=== PATIENT | female | born 1965 | race Hispanic/Latino ===

== ENCOUNTER 2016-10-23 08:46 | Emergency (ER) | payer OTHER ==
[2016-10-23 09:20] VITALS: BP 139/89; PULSE 86; RESP 16; TEMP 98; O2SAT 98; BMI 31.1
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
--- NOTE | 2016-10-23 14:31 | US ---
PROCEDURE: Left lower extremity venous US HISTORY: Leg pain and swelling. Evaluate for DVT. PHYSICIAN(S): Moody Leblanc MD. TECHNIQUE: Duplex sonography and color-flow Doppler with graded compression were used to evaluate the deep venous system of the left lower extremity. FINDINGS: The visualized deep venous system of the left lower extremity is sonographically normal and compressible. Normal wave forms and augmentation are seen. There is no sonographic evidence for deep venous thrombosis in the visualized segments of the left lower extremity. IMPRESSION: 1. No sonographic evidence for deep venous thrombosis in the visualized segments of the left lower extremity.
== END 2016-10-23 11:01 | disposition home or self-care (01) ==
LOC: ED 08:46
DX: M79.605 Pain in left leg (principal); I10 Essential (primary) hypertension; Z87.891 Personal history of nicotine dependence
CPT/HCPCS: 93971; 96372; 99283; J1885

== ENCOUNTER 2016-12-02 21:03 | Observation (INO) | payer OTHER ==
[2016-12-02 21:03] VITALS: BMI 26.6
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
[2016-12-02 22:59] LABS: ALB/GLOB RATIO 1.6 (1.1-1.8); ALBUMIN 3.9 g/dL (3.0-4.8); ALT/SGPT 28 U/L (7-56); AST/SGOT 16 U/L (15-39); BLOOD UREA NITROGEN 8 mg/dL (7-21); GFR AFRICAN-AMERICAN > 60; GFR NON-AFRICAN AMERICAN > 60
[2016-12-02 23:02] LABS: INR 1.06 (0.93-1.08); PARTIAL THROMBOPLASTIN TIME 23.8 Seconds (23.7-30.8); PROTHROMBIN TIME 11.5 Seconds (9.9-11.8)
[2016-12-02 23:05] LABS: HEMOGLOBIN 13.7 gm/dL (12.0-16.0); MEAN CELL VOLUME 82.2 fL (80.0-105.0); MEAN CORPUSCULAR HEMOGLOBIN 28.7 pg (25.0-35.0); MEAN CORPUSCULAR HGB CONC 34.9 g/dl (31.0-37.0); MEAN PLATELET VOLUME 9.1 fl (7.0-11.0); RBC 4.77 10^6/uL (3.5-6.1); RED CELL DISTRIBUTION WIDTH 13.2 % (11.5-14.5); WHITE BLOOD COUNT 5.1 10^3/ul (4.5-11.0)
[2016-12-02 23:14] LABS: TROPONIN I < 0.01 ng/mL
[2016-12-03] MEDS ORDERED: Insulin Regular 1 UNITS/0.01 ML ML SC STA (01:05)
[2016-12-03 06:23] VITALS: O2SAT 93
[2016-12-03] MEDS: Insulin Reg-LOW-Coverage SC SCH ×3 (08:00→18:00)
--- NOTE | 2016-12-03 08:22 | RAD ---
HISTORY: chest pain COMPARISON: 05/13/2015 FINDINGS: LUNGS: No active pulmonary disease. PLEURA: No significant pleural effusion identified, no pneumothorax apparent. CARDIOVASCULAR: Normal. OSSEOUS STRUCTURES: No significant abnormalities. VISUALIZED UPPER ABDOMEN: Normal. OTHER FINDINGS: None. IMPRESSION: No active disease.
[2016-12-03] MEDS ORDERED: Potassium Chloride 20 mEq ER Tab PO ONE (09:35)
[2016-12-03 09:37] LABS: HDL CHOLESTEROL 56 mg/dL (29-60)
[2016-12-03 09:48] LABS: LDL CHOLESTEROL 182 mg/dL (0-129)
[2016-12-03] MEDS ORDERED: Aminophylline 25 mg/ml Inj ONE (09:56)
--- NOTE | 2016-12-03 12:41 | CARD ---
APPROVED REPORT EXAM: Two-dimensional and M-mode echocardiogram with Doppler and color Doppler. INDICATION Chest Pain 2D DIMENSIONS Left Atrium (2D)3.6 (1.6-4.0cm)IVSd1.4 (0.7-1.1cm) LVDd4.3 (3.9-5.9cm)PWd1.2 (0.7-1.1cm) LVDs2.9 (2.5-4.0cm)FS (%) 31.9 % LVEF (%)60.4 (>50%) M-Mode DIMENSIONS Aortic Root3.00 (2.2-3.7cm)Aortic Cusp Exc.2.00 (1.5-2.0cm) Aortic Valve AoV Peak Pbsdnytf742.0cm/Nathaly Peak GR.6mmHg Mitral Valve MV E Bmqenugr832.0cm/sMV A Aodrinwe512.0cm/sE/A ratio0.9 TDI E/Lateral E'0.0E/Medial E'0.0 Tricuspid Valve TR Peak [id number]/sRAP [id number] Peak Gr.14mmHg [id number] LEFT VENTRICLE The left ventricle is normal size. There is mild concentric left ventricular hypertrophy. The left ventricular function is normal.EF-60-65% There is normal LV segmental wall motion. Transmitral Doppler flow pattern is Grade II-pseudonormal filling dynamics. No left ventricle thrombus noted on this study. There is no ventricular septal defect visualized. There is no left ventricular aneurysm. There is no mass noted in the left ventricle. RIGHT VENTRICLE The right ventricle is normal size. There is normal right ventricular wall thickness. The right ventricular systolic function is normal. ATRIA The left atrium size is normal. The right atrium size is normal. The interatrial septum is intact with no evidence for an atrial septal defect. AORTIC VALVE The aortic valve is thickened but opens well. There is trace aortic regurgitation. There is no aortic valvular stenosis. There is no aortic valvular vegetation. MITRAL VALVE The mitral valve is thickened but opens well. Mitral regurgitation is trace. There is no mitral valve stenosis. There is no evidence of mitral valve prolapse. TRICUSPID VALVE The tricuspid valve leaflets are thickened , but open well. There is trace tricuspid regurgitation.RVSP-24 mmof hg. There is no tricuspid valve stenosis. There is no tricuspid valve prolapse or vegetation. PULMONIC VALVE The pulmonary valve is normal in structure. There is trace pulmonic valvular regurgitation. There is no pulmonic valvular stenosis. GREAT VESSELS The aortic root is normal in size. The ascending aorta is normal in size. The pulmonary artery is normal. The IVC is normal in size and collapses >50% with inspiration. PERICARDIAL EFFUSION There is no pleural effusion. There is no pericardial effusion. <Conclusion> Normal chambeber Size. EF-60-65% Trace MR/TR/AR/PI RVSP-24 mmof hg. No vegetation or thrombus noted.
--- NOTE | 2016-12-03 15:24 | CP.PCM.HP ---
History of Present Illness - History of Present Illness History of Present Illness: 51 yo female adm thru ED with chest pain, troponin neg, had stress test today, result pending, No cp or sob at present Present on Admission - Present on Admission Any Indicators Present on Admission: No Past Patient History - Infectious Disease Hx of Infectious Diseases: None - Tetanus Immunizations Tetanus Immunization: Unknown - Past Medical History & Family History Past Medical History?: Yes - Past Social History Smoking Status: Former Smoker - CARDIAC Hx Heart Murmur: Yes (leaky valve) Hx Hypercholesterolemia: Yes Hx Hypertension: Yes - PULMONARY Hx Asthma: Yes Hx Pneumonia: Yes - NEUROLOGICAL Hx Seizures: Yes - HEENT Hx HEENT Problems: No - RENAL Hx Chronic Kidney Disease: No - ENDOCRINE/METABOLIC Hx Diabetes Mellitus Type 2: Yes - HEMATOLOGICAL/ONCOLOGICAL Hx Blood Disorders: No Hx Blood Transfusions: No Hx Blood Transfusion Reaction: No - INTEGUMENTARY Hx Eczema: Yes Hx Squamous Cell: Yes (Basal cell carcinoma) - MUSCULOSKELETAL/RHEUMATOLOGICAL Hx Arthritis: Yes Hx Back Pain: Yes Hx Falls: Yes - GASTROINTESTINAL HX Swallowing Problems: Yes - GENITOURINARY/GYNECOLOGICAL Hx Urinary Tract Infection: Yes - PSYCHIATRIC Hx Anxiety: Yes Hx Depression: Yes Hx Substance Use: No - SURGICAL HISTORY Hx Cholecystectomy: Yes Hx Hysterectomy: Yes - ANESTHESIA Hx Anesthesia: Yes Hx Anesthesia Reactions: No Hx Malignant Hyperthermia: No Meds Allergies/Adverse Reactions: Allergies Allergy/AdvReac Type Severity Reaction Status Date / Time Penicillins Allergy ANAPHYLAXIS Verified 05/28/16 13:02 Physical Exam - Head Exam Head Exam: ATRAUMATIC, NORMOCEPHALIC - Eye Exam Eye Exam: EOMI, PERRL - ENT Exam ENT Exam: Normal Exam - Neck Exam Neck exam: Positive for: Normal Inspection - Respiratory Exam Respiratory Exam: Accessory Muscle Use, NORMAL BREATHING PATTERN - Cardiovascular Exam Cardiovascular Exam: REGULAR RHYTHM - GI/Abdominal Exam GI & Abdominal Exam: Normal Bowel Sounds, Soft - Extremities Exam Extremities exam: Positive for: normal inspection - Neurological Exam Neurological exam: Alert, Oriented x3 - Skin Skin Exam: Normal Color, Warm Results - Vital Signs Recent Vital Signs: Last Vital Signs Temp 98 F 12/03/16 06:00 Pulse 83 12/03/16 14:00 Resp 21 12/03/16 06:00 BP 140/90 12/03/16 06:00 Pulse Ox 93 L 12/03/16 06:00 - Labs Result Diagrams: 12/02/16 22:38 12/02/16 22:38 Labs: Laboratory Results - last 24 hr 12/03/16 12/03/16 12/03/16 02:24 07:16 08:40 POC Glucose (mg/dL) 212 H 150 H Hemoglobin A1c Triglycerides 273 H Cholesterol 291 H LDL Cholesterol Direct 182 H HDL Cholesterol 56 TSH 3rd Generation 12/03/16 12/03/16 12/03/16 08:40 08:40 13:51 POC Glucose (mg/dL) 308 H Hemoglobin A1c 9.8 H Triglycerides Cholesterol LDL Cholesterol Direct HDL Cholesterol TSH 3rd Generation 1.80 Assessment & Plan (1) Chest pain Status: Acute (2) Type II diabetes mellitus Status: Chronic - Assessment and Plan (Free Text) Plan: await results stress test - Date & Time Date: 12/03/16 Time: 15:00
[2016-12-03 17:53] VITALS: BP 153/93; RESP 16; TEMP 97
[2016-12-03 18:41] VITALS: PULSE 81
--- NOTE | 2016-12-03 20:15 | CON ---
DATE: 12/03/2016 REASON FOR THE CONSULTATION: Followup cardiac evaluation, admitted with chest pain. BRIEF CLINICAL HISTORY: This is a 51-year-old female with past medical history significant for diabetes, hypertension, hyperlipidemia, admitted with complaint of chest pain. The patient said the chest pain is more than 6 weeks off and on, and dyspnea exertion off and on. It is getting worse so decided to come to ER to check it out. Denies any recent genuine character of the chest pain, denies any genuine intensity or duration of the chest pain. PAST MEDICAL HISTORY: Significant for diabetes, hypertension, hyperlipidemia, history of cardiac catheterization 12/16/2012, and nonobstructive coronary artery disease. Previous cardiac workup as follows; The patient had cardiac catheterization on 12/16/2012 that showed essentially normal left main, proximal normal LAD, proximal very tortuous. No flow obstructive stenosis in the mid LAD. Distal LAD is diffusely between 50-55%, but no non-flow obstructive stenosis noted. Circumflex large caliber versus essentially significant disease, very tortuous. Right coronary artery has also large caliber vessels essentially for significant disease, ejection fraction reported 55%, EDP was in the range of 12 dated 12/16/2013. The patient had a stress test twice 11/17/2012 and most recently on 05/15/2015 and she had normal myocardial perfusion study, ejection fraction at 72% on dated 05/15/2015. The patient had echocardiographic data at Dr. Hopkins's office that shows mild mitral regurgitation in 2014. SOCIAL HISTORY: Denies history of alcohol abuse. ALLERGIES: PENICILLIN GET ANAPHYLACTIC REACTION. CURRENT MEDICATIONS: The patient at home is taking ibuprofen, aspirin, metformin 1 g twice, and lisinopril 20 mg daily. REVIEW OF SYSTEMS: As per HPI. A 14-point review of systems negative except as per HPI. PHYSICAL EXAMINATION VITAL SIGNS: Height 5 feet 1 inch, weight 167, BMI 31 kg/m2. Rest of the examination as follows; temperature afebrile, heart rate 80, blood pressure 140/90 HEENT: PERRLA, extraocular muscles intact. NECK: Supple. No carotid bruit. No thyromegaly. CHEST: Clear to auscultation. HEART: S1 and S2, regular. ABDOMEN: Soft. EXTREMITIES: Clubbing and cyanosis negative. LABORATORY DATA: EKG shows normal sinus LVH, heart rate 97. No acute ST-T changes noted. Blood workup as follows: WBC 5.1, hemoglobin 13.7, hematocrit 39.2, and platelet count 162. Chemistry shows sodium 130, potassium 3.8, chloride 104, carbon dioxide 25, anion gap of 13, BUN 8, and creatinine of 0.4. Random sugar 331, troponin 0.01. IMPRESSION AND PLAN: Diabetes, hypertension, hyperlipidemia, poorly controlled diabetes mellitus history by random sugar 331, obesity, history of coronary artery disease, nonobstructive status post cardiac catheterization 12/16/2012, nonobstructive disease limited only to distal LAD diffusely disease, no focal stenosis, preserved LV function, history of a stress test 05/15/2015, and normal myocardial perfusion scan, ejection fraction of 72%. The patient admitted with at least 2-3 months of chest pain, angina on exertion, possibly it is a new onset, multiple risk factor for progression to coronary artery disease, including poorly controlled diabetes and obesity. We will schedule echo and a stress test. We will follow lipid profile, TSH, hemoglobin A1c. Discussed with the patient and significant other sitting in the room. We will follow further recommendation after stress test. Thank you Dr. Sotomayor for the opportunity in taking care of patient Neelam Carpio. James Santos MD cc: Dr. Sotomayor
--- NOTE | 2016-12-03 22:49 | CARD ---
APPROVED REPORT Protocol: LEXISCAN Test Type: Lexiscan Sestamibi Stress Test Attending Physician: Dr. James Santos Referring Physician: Dr. Kendrick Sotomayor Test Indications: Chest Pain Height:5 ft 1 in Weight:167lbs Medications: Human Regular Medical History: 51 y/o female. Hx of chest pain,hypertension, asthma,shortness of breath,hyperlipidemia,diabetic,arthritis,family hx of heart disease. Target HR: 168 bpm Resting ECG: normal Resting Heart Rate: 81 bpm Resting Blood Pressure: 180/100mmHg Submaximum (85%): 143 bpm PROCEDURE Pharmacologic stress testing was performed using 0.4mg per 5ml of regadenoson given intravenously over 7-10 seconds. Reversal agent aminophyline 100 mg, given intravenously for Other. POST EXERCISE Reason for Termination: Protocol completed Target HR: No Max HR: 84 bpm 66% of Maximum Predicted HR: 168 bpm Exercise duration: 00:30 min:sec, 0 Stage Exercise capacity: 1.0METs Max Blood Pressure: 180/100mmHg Blood Pressure response to exercise: normal resting BP - appropriate response Heart Rate response to exercise: appropriate Chest Pain: No, none Angina index: 0 Arrhythmia: No, none ST Change: No, none Deviation: 0 mm INTERPRETATION Stress EKG Conclusion: Negative IV Lexiscan for ischemia and for chest pain, Nuclear scan to foloow. Signed by James Santos Electronically Approved: 12/03/2016 10:33:55 EXAM: Myocardial Perfusion REST/STRESS Stress Test Type: Pharmacologic Imaging Protocol Rest Spect myocardial perfusion imaging was performed in supine position 45 minutes following the injection of 10.6 mCi of Tc-99 Myoview. At peak stress, the patient was injected intravenously with 30.9mCi of Tc-99 tetrofosmin after an infusion time of 0 minutes and 10 seconds. Gated Stress Spect was performed 80 minutes after intravenous Tc-99 Myoview injection. The images were gated to evaluate regional wall motion and calculate ventricular ejection fraction.Images were reconstructed using backfilter projection method in short horizontal and verticle long axis. Spect slices were generated. LV Perfusion The quality of the study is good. The left ventricle is within normal limits in size. The right ventricle is unremarkable. The lung uptake is normal. The distribution of tracer reveals mildly decreased perfusion involving inferior wall on the stress study. The remainder of the LV myocardium is unremarkable. The rest myocardial perfusion study shows no significant change. Wall Motion Wall motion study shows good contractility of the left ventricle. LVEF = 66%. Conclusion 1. Essentially normal SPECT myocardial perfusion study. 2. Fixed inferior defect is most likely due to low-lying breast/ soft tissue attenuation. 3. Normal gated wall motion of the left ventricle. 4. In comparison with the last study of 05/15/2015, there is no significant change.
--- NOTE | 2016-12-03 23:54 | CARD ---
APPROVED REPORT EKG Measurement Heart [id number] <Conclusion> Normal sinus rhythm Possible Left atrial enlargement Left ventricular hypertrophy Prolonged QT Abnormal ECG
== END 2016-12-03 21:30 | disposition home or self-care (01) ==
LOC: ED 21:03 → ERH 12-03 00:13 → 2RSO 12-03 02:43
PROVIDERS: ADMIT Internal Medicine; ATTEND Internal Medicine
DX: R07.9 Chest pain, unspecified (principal); E11.9 Type 2 diabetes mellitus without complications; I10 Essential (primary) hypertension; E78.5 Hyperlipidemia, unspecified
CPT/HCPCS: 36415; 71010; 78452; 80053; 80061; 82550; 82948; 83036; 83615; 84443; 84484; 85027; 85610; 85730; 93005; 93017; 93306; 96372; 99285; A9502; G0378; J0280; J2785

== ENCOUNTER 2017-01-04 17:57 | Emergency (ER) | payer OTHER ==
[2017-01-04 18:17] VITALS: BMI 31.6
[2017-01-04 18:23] VITALS: TEMP 98.6; O2SAT 97
--- NOTE | 2017-01-04 18:43 | ED PDOC ---
Arrival/HPI - General Chief Complaint: Abnormal Skin Integrity Time Seen by Provider: 01/04/17 18:38 Historian: Patient, Spouse - History of Present Illness Narrative History of Present Illness (Text): 01/04/17 18:30 This 51 yo female presents to this ED c/o rash x 2 days. Patient and spouse stated that patient has been out-doors, and she believes she had mosquito bites. stated that he told patient to be inside of the house due to mosquitos, but according to her , patient ' does not listen". Patient stated rash is pruritic. Denies recent travel, sick contact, fever, sore throat, wheezing, sob, cough, dizziness, or abnormal gait. Time/Duration: Other (see hpi) Context: Home Past Medical History - Provider Review Nursing Documentation Reviewed: Yes - Infectious Disease Hx of Infectious Diseases: None - Tetanus Immunization Tetanus Immunization: Unknown - Reproductive Menopause: Yes - Cardiac Hx Heart Murmur: Yes (leaky valve) Hx Hypertension: Yes - Pulmonary Hx Asthma: Yes Hx Pneumonia: Yes - Neurological Hx Seizures: Yes - HEENT Hx HEENT Disorder: No - Renal Hx Renal Disorder: No - Endocrine/Metabolic Hx Diabetes Mellitus Type 2: Yes - Hematological/Oncological Hx Blood Disorders: No Hx Blood Transfusions: No Hx Blood Transfusion Reaction: No - Integumentary Hx Eczema: Yes Hx Squamous Cell Carcinoma: Yes (Basal cell carcinoma) - Musculoskeletal/Rheumatological Hx Arthritis: Yes Hx Back Pain: Yes Hx Falls: Yes - Gastrointestinal HX Swallowing Problems: Yes - Genitourinary/Gynecological Hx Urinary Tract Infection: Yes - Psychiatric Hx Anxiety: Yes Hx Depression: Yes Hx Substance Use: No - Surgical History Hx Cholecystectomy: Yes Hx Hysterectomy: Yes - Anesthesia Hx Anesthesia: Yes Hx Anesthesia Reactions: No Hx Malignant Hyperthermia: No - Suicidal Assessment Feels Threatened In Home Enviroment: No Family/Social History - Physician Review Nursing Documentation Reviewed: Yes Family/Social History: Other (non-contributory) Smoking Status: Former Smoker Hx Alcohol Use: No Hx Substance Use: No Hx Substance Use Treatment: No Allergies/Home Meds Allergies/Adverse Reactions: Allergies Penicillins Allergy (Verified 05/28/16 13:02) ANAPHYLAXIS Home Medications: Home Meds Medication Instructions Recorded Confirmed Metformin HCl 1,000 mg PO BID 05/13/15 01/04/17 Aspirin [Adult Low Dose Aspirin EC] 81 mg PO DAILY 12/25/15 01/04/17 Lisinopril [Zestril] 20 mg PO DAILY 12/25/15 01/04/17 Review of Systems - Review of Systems Constitutional: Normal. absent: Fatigue, Weight Change, Fevers Eyes: Normal ENT: Normal. absent: Sore Throat Respiratory: Normal. absent: SOB, Cough Cardiovascular: Normal. absent: Chest Pain, Palpitations Gastrointestinal: Normal. absent: Abdominal Pain, Nausea, Vomiting Genitourinary Female: Normal Musculoskeletal: Normal Skin: Rash, Pruritis. absent: Skin Lesions, Laceration, Abscess, Ulcer, Cellulitis Neurological: Normal. absent: Headache, Dizziness Endocrine: Normal Hemo/Lymphatic: Normal Psychiatric: Normal Physical Exam Vital Signs Temp Pulse Resp BP Pulse Ox 01/04/17 19:04 102 H 18 162/96 H 97 01/04/17 17:57 98.6 F 109 H 16 165/109 H 97 Temperature: Afebrile Blood Pressure: Normal Pulse: Regular Respiratory Rate: Normal Appearance: Positive for: Well-Appearing, Non-Toxic, Comfortable Pain Distress: None Mental Status: Positive for: Alert and Oriented X 3 - Systems Exam Head: Present: Atraumatic, Normocephalic Pupils: Present: PERRL Extroacular Muscles: Present: EOMI Conjunctiva: Present: Normal Mouth: Present: Moist Mucous Membranes Neck: Present: Normal Range of Motion Respiratory/Chest: Present: Clear to Auscultation, Good Air Exchange. No: Respiratory Distress, Accessory Muscle Use, Wheezes, Decreased Breath Sounds, Rales, Retracting, Rhonchi Cardiovascular: Present: Regular Rate and Rhythm, Normal S1, S2. No: Murmurs Back: Present: Normal Inspection. No: CVA Tenderness Upper Extremity: Present: Normal Inspection, Normal ROM. No: Cyanosis, Edema Lower Extremity: Present: Normal Inspection, NORMAL PULSES, Normal ROM. No: Edema Neurological: Present: GCS=15, CN II-XII Intact, Speech Normal, Motor Func Grossly Intact, Normal Sensory Function, Normal Cerebellar Funct, Gait Normal, Memory Normal, Other (no neuro focal deficit) Skin: Present: Warm, Dry, Rashes ((+) insect like rash, located mild scattered on lower and upper extremity. Mostly a distal areas of extremity. No rash on trunk. Rash blanches on palpation), Normal Color Lymphatic: No: Cervical Adenopathy, Axillary Adenopathy, Inguinal Adenopathy Psychiatric: Present: Alert, Oriented x 3, Normal Insight, Normal Concentration Medical Decision Making ED Course and Treatment: 01/04/17 18:46 Patient came c/o pruritic rash. rash resembles insect bite. Patient was recommended to stay indoor as much as possible, and to apply insect repellent spray to prevent further insect bite. To use cream prescribed by me on areas that itches. To avoid using cream on face. Return to emergency if rash worsen , or fever Re-evaluation Time: 18:48 Reassessment Condition: Re-examined, Unchanged Disposition/Present on Arrival - Present on Arrival Any Indicators Present on Arrival: No History of DVT/PE: No History of Uncontrolled Diabetes: Yes Urinary Catheter: No History of Decub. Ulcer: No History Surgical Site Infection Following: None - Disposition Have Diagnosis and Disposition been Completed?: Yes Diagnosis: Insect bite, Rash Disposition: HOME/ ROUTINE Disposition Time: 18:49 Patient Plan: Discharge Condition: GOOD Discharge Instructions (ExitCare): Insect Bite or Sting (ED) Additional Instructions: Call private doctor for follow up visit in 1-2 days. Apply insect repellent spray to prevent further insect bite. return to emergency if symptoms worsen, shortness of breath, or wheezing Prescriptions: Hydroxyzine Pamoate [Vistaril] 25 mg PO TID PRN #30 capsule PRN Reason: Itching / Pruritus Triamcinolone 0.1% [Triamcinolone 0.1% Cream] 1 applic TP BID PRN #1 tube PRN Reason: Itching / Pruritus Referrals: [facility] [Outside] - Follow up with primary [facility] [Outside] - Follow up with primary Forms: [employer] (Ecuadorean)
[2017-01-04 19:04] VITALS: BP 162/96; PULSE 102; RESP 18
== END 2017-01-04 18:52 | disposition home or self-care (01) ==
LOC: ED 17:57
DX: S80.861A Insect bite (nonvenomous), right lower leg, initial encounter (principal); S80.862A Insect bite (nonvenomous), left lower leg, initial encounter; S40.862A Insect bite (nonvenomous) of left upper arm, initial encounter; S40.861A Insect bite (nonvenomous) of right upper arm, initial encounter; W57.XXXA Bitten or stung by nonvenomous insect and other nonvenomous arthropods, initial encounter; R21 Rash and other nonspecific skin eruption

== ENCOUNTER 2017-02-23 08:45 | Emergency (ER) | payer OTHER ==
[2017-02-23 08:45] VITALS: BMI 31.6
[2017-02-23 08:59] VITALS: RESP 16; TEMP 98.1
[2017-02-23] MEDS ORDERED: Sodium Chloride 0.9% 1,000 ML IV STA (09:09)
--- NOTE | 2017-02-23 09:17 | ED PDOC ---
Arrival/HPI - General Chief Complaint: Back Pain Time Seen by Provider: 02/23/17 09:02 Historian: Patient - History of Present Illness Narrative History of Present Illness (Text): 02/23/17 09:10 A 52 year old female, whose past medical history includes type II diabetes mellitus (NIID) and hyperglycemia, presents to emergency department for right lower back pain that radiates to her right lower abdominal area, which began 2 days ago. The patient reports she has had this pain in the past, but today it is the worse it has ever been. The patient states she vomited once and denies any fever, chest pain, shortness of breath, dysuria, smoking, drinking, or any other complaints at this time. Time/Duration: < week (x2 days) Symptom Onset: Sudden Symptom Course: Unchanged Activities at Onset: Light Context: Walking, Home Associated Symptoms (Text): 02/23/17 09:19 2 day history of right flank pain with radiation into the right groin and right lower quadrant. No nausea or diarrhea. 1 episode of vomiting. No genitourinary symptoms. No fever or chills. No trauma. She appears comfortable. Past Medical History - Provider Review Nursing Documentation Reviewed: Yes - Infectious Disease Hx of Infectious Diseases: None - Tetanus Immunization Tetanus Immunization: Unknown - Cardiac Hx Cardiac Disorders: Yes Hx Heart Murmur: Yes Hx Hypertension: Yes - Pulmonary Hx Respiratory Disorders: Yes Hx Asthma: Yes Hx Pneumonia: Yes - Neurological Hx Neurological Disorder: Yes Hx Seizures: Yes - HEENT Hx HEENT Disorder: No - Renal Hx Renal Disorder: No - Endocrine/Metabolic Hx Endocrine Disorders: Yes Hx Diabetes Mellitus Type 2: Yes - Hematological/Oncological Hx Blood Disorders: No Hx Blood Transfusions: No Hx Blood Transfusion Reaction: No - Integumentary Hx Dermatological Disorder: Yes Hx Eczema: Yes Hx Squamous Cell Carcinoma: Yes (Basal cell carcinoma) - Musculoskeletal/Rheumatological Hx Musculoskeletal Disorders: Yes Hx Arthritis: Yes Hx Back Pain: Yes Hx Falls: Yes - Gastrointestinal Hx Gastrointestinal Disorders: Yes HX Swallowing Problems: Yes - Genitourinary/Gynecological Hx Genitourinary Disorders: Yes Hx Urinary Tract Infection: Yes - Psychiatric Hx Psychophysiologic Disorder: Yes Hx Anxiety: Yes Hx Depression: Yes Hx Substance Use: No - Surgical History Hx Cholecystectomy: Yes Hx Hysterectomy: Yes Other/Comment: bladder sling - Anesthesia Hx Anesthesia: Yes Hx Anesthesia Reactions: No Hx Malignant Hyperthermia: No - Suicidal Assessment Feels Threatened In Home Enviroment: No Family/Social History - Physician Review Nursing Documentation Reviewed: Yes Family/Social History: Unknown Family HX Smoking Status: Former Smoker Hx Alcohol Use: No Hx Substance Use: No Hx Substance Use Treatment: No Allergies/Home Meds Allergies/Adverse Reactions: Allergies Penicillins Allergy (Verified 02/23/17 08:50) ANAPHYLAXIS Review of Systems - Physician Review All systems were reviewed & negative as marked: Yes - Review of Systems Constitutional: absent: Fatigue, Fevers Respiratory: absent: SOB, Cough Cardiovascular: absent: Chest Pain Gastrointestinal: Abdominal Pain, Vomiting Genitourinary Female: absent: Dysuria, Frequency, Hematuria Musculoskeletal: Back Pain Physical Exam Vital Signs Temp Pulse Resp BP Pulse Ox 02/23/17 08:53 98.1 F 80 16 169/102 H 95 Temperature: Afebrile Blood Pressure: Hypertensive Pulse: Regular Respiratory Rate: Normal Appearance: Positive for: Well-Appearing, Non-Toxic, Comfortable Pain Distress: None Mental Status: Positive for: Alert and Oriented X 3 - Systems Exam Head: Present: Atraumatic, Normocephalic Pupils: Present: PERRL Extroacular Muscles: Present: EOMI Conjunctiva: Present: Normal Mouth: Present: Moist Mucous Membranes Neck: Present: Normal Range of Motion Respiratory/Chest: Present: Clear to Auscultation, Good Air Exchange. No: Respiratory Distress, Accessory Muscle Use Cardiovascular: Present: Regular Rate and Rhythm, Normal S1, S2. No: Murmurs Abdomen: Present: Normal Bowel Sounds. No: Tenderness, Distention, Peritoneal Signs, Rebound, Guarding Back: Present: CVA Tenderness (mild right sided cva tenderness ) Upper Extremity: Present: Normal Inspection. No: Cyanosis, Edema Lower Extremity: Present: Normal Inspection. No: Edema Neurological: Present: GCS=15, CN II-XII Intact, Speech Normal, Motor Func Grossly Intact Skin: Present: Warm, Dry, Normal Color. No: Rashes Psychiatric: Present: Alert, Oriented x 3, Normal Insight, Normal Concentration Medical Decision Making ED Course and Treatment: 02/23/17 09:10 Impression: A 52 year old female with right lower back pain. Differential Diagnosis included but are not limited to: Plan: -- Abd & Pelvis CT -- Labs -- Toradol, IV Fluids -- Urinalysis -- Reassess and disposition Progress Notes: 02/23/17 10:19 Symptoms improved. Workup is unrevealing. Patient will be discharged home with the diagnosis of back pain to follow-up with Dr. Sotomayor as an outpatient. Prescription for Naprosyn and Flexeril. - Lab Interpretations Lab Results: 02/23/17 09:25 02/23/17 09:25 Lab Results 02/23/17 09:25: Sodium 139, Potassium 4.1, Chloride 99, Carbon Dioxide 29, Anion Gap 15, BUN 8, Creatinine 0.5 L, Est GFR ( Amer) > 60, Est GFR (Non -Af Amer) > 60, Random Glucose 233 H, Calcium 9.6, Total Bilirubin 1.2, AST 20, ALT 31, Alkaline Phosphatase 108, Total Protein 7.2, Albumin 4.5, Globulin 2.7, Albumin/Globulin Ratio 1.7, Lipase 40 02/23/17 09:25: Urine Color Yellow, Urine Appearance Sl cloudy, Urine pH 6.0, Ur Specific Baldwin >= 1.030, Urine Protein 30 H, Urine Glucose (UA) 500 H, Urine Ketones Trace H, Urine Blood Negative, Urine Nitrate Negative, Urine Bilirubin Negative, Urine Urobilinogen 0.2, Ur Leukocyte Esterase Trace H, Urine RBC 0 - 2, Urine WBC 1 - 3, Ur Epithelial Cells 0 - 2, Urine Bacteria Mod 02/23/17 09:25: WBC 5.2, RBC 5.36, Hgb 15.7, Hct 43.8, MCV 81.7, MCH 29.3, MCHC 35.8, RDW 12.5, Plt Count 183, MPV 9.0, Gran % 50.5, Lymph % (Auto) 39.0 H, Shelby % (Auto) 8.9 H, Eos % (Auto) 1.4 L, Baso % (Auto) 0.2, Gran # 2.61, Lymph # 2.0, Shelby # 0.5, Eos # 0.1, Baso # 0.01 - RAD Interpretation Radiology Orders: 02/23/17 09:09 ABD & PELVIS W/O PO OR IV CONT [CT] Stat CT scan of the abdomen and pelvis is read by the radiologist shows no acute findings. Lapping Machine Set Up Operator: Radiologist - Medication Orders Current Medication Orders: Discontinued Medications Sodium Chloride (Sodium Chloride 0.9%) 1,000 mls @ 1,000 mls/hr IV .Q1H STA Stop: 02/23/17 10:08 Last Admin: 02/23/17 09:33 Dose: 1,000 mls/hr eMAR Start Stop Document 02/23/17 09:33 (Rec: 02/23/17 09:33 [id number]) Intravenous Solution Start Date 02/23/17 Start Time 09:33 Ketorolac Tromethamine (Toradol) 30 mg IVP STAT STA Stop: 02/23/17 09:10 Last Admin: 02/23/17 09:34 Dose: 30 mg MAR Pain Assessment Document 02/23/17 09:34 (Rec: 02/23/17 09:34 [id number]) Pain Reassessment Is this a pain reassessment? Yes Sleep Is patient sleeping during reassessment? No Presence of Pain Presence of Pain Yes IVP Administration Document 02/23/17 09:34 (Rec: 02/23/17 09:34 [id number]) Charges for Administration # of IVP Administrations 1 - Scribe Statement The provider has reviewed the documentation as recorded by the Scribe Adriana Bernstein Provider Scribe Attestation: All medical record entries made by the Scribe were at my direction and personally dictated by me. I have reviewed the chart and agree that the record accurately reflects my personal performance of the history, physical exam, medical decision making, and the department course for this patient. I have also personally directed, reviewed, and agree with the discharge instructions and disposition. Disposition/Present on Arrival - Present on Arrival Any Indicators Present on Arrival: No History of DVT/PE: No History of Uncontrolled Diabetes: Yes Urinary Catheter: No History of Decub. Ulcer: No History Surgical Site Infection Following: None - Disposition Have Diagnosis and Disposition been Completed?: Yes Diagnosis: Abdominal pain, Low back pain Disposition: HOME/ ROUTINE Disposition Time: 10:19 Patient Plan: Discharge Condition: IMPROVED Discharge Instructions (ExitCare): Acute Low Back Pain (ED), Acute Abdominal Pain (ED) Additional Instructions: Follow-up with PMD. Follow up in ER as needed. Hypertension check. Moist heat. Prescriptions: Cyclobenzaprine [Cyclobenzaprine HCl] 5 mg PO Q8 #15 tab Naproxen [Naprosyn] 500 mg PO BID #14 tab Referrals: Kendrick Sotomayor JD, MD [Primary Care Provider] - Follow up with primary Forms: [employer] (Swedish)
[2017-02-23 09:43] LABS: BASO # 0.01 K/mm3 (0.0-2.0); BASO % 0.2 % (0.0-3.0); EOS # 0.1 (0.0-0.7); EOS % 1.4 % (1.5-5.0); GRAN # 2.61 (1.4-6.5); GRAN % 50.5 % (50.0-68.0); HEMATOCRIT 43.8 % (36.0-48.0); MEAN CELL VOLUME 81.7 fl (80.0-105.0); MEAN CORPUSCULAR HEMOGLOBIN 29.3 pg (25.0-35.0); MEAN CORPUSCULAR HGB CONC 35.8 g/dl (31.0-37.0); MONO # 0.5 (0.1-0.6); MONO % 8.9 % (1.0-6.0); RED CELL DISTRIBUTION WIDTH 12.5 % (11.5-14.5); WHITE BLOOD COUNT 5.2 10^3/ul (4.5-11.0)
[2017-02-23 09:44] LABS: URINE APPEARANCE SL CLOUDY (CLEAR); URINE BILIRUBIN NEGATIVE (NEGATIVE); URINE BLOOD NEGATIVE (NEGATIVE); URINE COLOR YELLOW (YELLOW); URINE GLUCOSE (UA) 500 mg/dL (NEGATIVE); URINE KETONE TRACE mg/dL (NEGATIVE); URINE LEUKOCYTE ESTERASE TRACE Leu/uL (NEGATIVE); URINE PROTEIN 30 mg/dL (<30 mg/dL); URINE UROBILINOGEN 0.2 E.U./dL (<1 E.U./dL)
[2017-02-23 09:53] LABS: ALB/GLOB RATIO 1.7 (1.1-1.8); ALKALINE PHOSPHATASE 108 U/L (38-126); ALT/SGPT 31 U/L (7-56); AST/SGOT 20 U/L (14-36); BILIRUBIN,TOTAL 1.2 mg/dL (0.2-1.3); BLOOD UREA NITROGEN 8 mg/dL (7-21); CALCIUM 9.6 mg/dL (8.4-10.5); CARBON DIOXIDE 29 mmol/L (21-33); CHLORIDE 99 mmol/L (98-107); GFR AFRICAN-AMERICAN > 60; GLUCOSE,RANDOM 233 mg/dL (70-110); LIPASE 40 U/L (23-300); POTASSIUM 4.1 mmol/L (3.6-5.0); SODIUM 139 mmol/L (132-148); TOTAL PROTEIN 7.2 g/dL (5.8-8.3); URINE BACTERIA MOD (NEG); URINE EPITHELIAL CELLS 0 - 2 /hpf (0-5); URINE RBC 0 - 2 /hpf (0-2)
--- NOTE | 2017-02-23 10:06 | CT ---
PROCEDURE: CT Abdomen and Pelvis without intravenous or oral contrast HISTORY: right stone run Right-side, right back pain COMPARISON: 09/03/2016 TECHNIQUE: Technique Contiguous axial images of the abdomen and pelvis without intravenous or oral contrast. Radiation dose: Total exam DLP = 791.94 mGy-cm. This CT exam was performed using one or more of the following dose reduction techniques: Automated exposure control, adjustment of the mA and/or kV according to patient size, and/or use of iterative reconstruction technique. FINDINGS: LOWER THORAX: Unremarkable. LIVER: Unremarkable. GALLBLADDER AND BILE DUCTS: Status post cholecystectomy. No abnormality is seen in the gallbladder fossa. PANCREAS: Unremarkable. No ductal dilatation. SPLEEN: Unremarkable. No splenomegaly. ADRENALS: Unremarkable. KIDNEYS AND URETERS: Unremarkable. No hydronephrosis. BLADDER: Unremarkable. No calculus. REPRODUCTIVE: Prior Hysterectomy APPENDIX: Unremarkable. Normal appendix. STOMACH AND BOWEL: Constipation without fecal impaction or obstruction. PERITONEUM: Unremarkable. No significant fluid collection. No free air. LYMPH NODES: Unremarkable. No enlarged lymph nodes. VASCULATURE: Unremarkable. No aortic aneurysm. BONES: No acute fracture. OTHER FINDINGS: None . IMPRESSION:
[2017-02-23 10:33] VITALS: BP 154/91; PULSE 82; O2SAT 97
== END 2017-02-23 10:35 | disposition home or self-care (01) ==
LOC: ED 08:45
DX: M54.5 Low back pain (principal); R10.9 Unspecified abdominal pain; I10 Essential (primary) hypertension; E11.9 Type 2 diabetes mellitus without complications; Z87.891 Personal history of nicotine dependence
CPT/HCPCS: 74176; 80053; 81001; 83690; 85025; 96361; 96374; 99283; J1885; J7040

== ENCOUNTER 2017-05-06 06:14 | Emergency (ER) | payer OTHER ==
[2017-05-06 06:15] VITALS: BMI 30.2
[2017-05-06 06:49] VITALS: TEMP 98.7
--- NOTE | 2017-05-06 07:50 | ED PDOC ---
Arrival/HPI - General Chief Complaint: Lower Extremity Problem/Injury Time Seen by Provider: 05/06/17 07:06 Historian: Patient - History of Present Illness Narrative History of Present Illness (Text): 05/06/17 07:50 A 52 year old female, whose past medical history includes diabetes, hypertension , hyperlipidemia, and asthma, presents to the emergency department for left side lower extremity pain, which began 2 months ago. The patient reports her pain begins in her foot and shoots up to her left lower abdomen region. She notes the pain as "burning pain in my bones." Patient states that pain has been present in some form for several years. Denies chest pain or shortness of breath. Denies acute trauma. Denies vomiting or diarrhea. Denies weight loss or night sweats. Past Medical History - Provider Review Nursing Documentation Reviewed: Yes - Infectious Disease Hx of Infectious Diseases: None - Tetanus Immunization Tetanus Immunization: Unknown - Cardiac Hx Cardiac Disorders: Yes Hx Heart Murmur: Yes Hx Hypertension: Yes Hx Pacemaker: No - Pulmonary Hx Respiratory Disorders: Yes Hx Asthma: Yes Hx Pneumonia: Yes - Neurological Hx Neurological Disorder: Yes Hx Seizures: Yes - HEENT Hx HEENT Disorder: No - Renal Hx Renal Disorder: No - Endocrine/Metabolic Hx Endocrine Disorders: Yes Hx Diabetes Mellitus Type 2: Yes - Hematological/Oncological Hx Blood Disorders: No Hx Blood Transfusions: No Hx Blood Transfusion Reaction: No - Integumentary Hx Dermatological Disorder: Yes Hx Basal Cell Carcinoma: Yes (BACK) Hx Eczema: Yes Hx Squamous Cell Carcinoma: Yes (Basal cell carcinoma) - Musculoskeletal/Rheumatological Hx Musculoskeletal Disorders: Yes (LT LEG PAIN) - Gastrointestinal Hx Gastrointestinal Disorders: Yes Hx Gall Bladder Disease: Yes (CHOLECYSTECTOMY) HX Swallowing Problems: Yes - Genitourinary/Gynecological Hx Genitourinary Disorders: Yes Hx Urinary Tract Infection: Yes Other/Comment: genital herpes; prolapsed bladder - Psychiatric Hx Psychophysiologic Disorder: Yes Hx Anxiety: Yes Hx Depression: Yes Hx Emotional Abuse: No Hx Panic Disorder: Yes Hx Physical Abuse: No Hx Substance Use: No - Surgical History Other/Comment: bladder sling-BLADDER LIFT - Anesthesia Hx Anesthesia: Yes Hx Anesthesia Reactions: No Hx Malignant Hyperthermia: No - Suicidal Assessment Feels Threatened In Home Enviroment: No Family/Social History - Physician Review Nursing Documentation Reviewed: Yes Family/Social History: No Known Family HX Smoking Status: Former Smoker Hx Alcohol Use: No Hx Substance Use: No Hx Substance Use Treatment: No Allergies/Home Meds Allergies/Adverse Reactions: Allergies Penicillins Allergy (Verified 02/23/17 08:50) ANAPHYLAXIS Home Medications: Home Meds Medication Instructions Recorded Confirmed Aspirin [Aspirin Chewable] 81 mg PO DAILY 03/21/17 05/06/17 Atorvastatin [Lipitor] 10 mg PO DIN 03/21/17 05/06/17 Lisinopril [Zestril] 20 mg PO DAILY 03/21/17 05/06/17 glyBURIDE [Micronase] 1 tab PO BID 04/15/17 05/06/17 Review of Systems - Review of Systems Constitutional: absent: Fatigue, Fevers Eyes: absent: Eye Pain ENT: absent: Hearing Changes Respiratory: absent: SOB Cardiovascular: Edema, Calf Pain. absent: Chest Pain, Palpitations, [place] Gastrointestinal: Nausea Musculoskeletal: Back Pain, Other (left lower extremity pain ) Skin: absent: Rash, Skin Lesions Neurological: absent: Dizziness, Focal Weakness Endocrine: absent: Polyuria Psychiatric: absent: Anxiety, Depression Physical Exam - Physical Exam Narrative Physical Exam (Text): 05/06/17 07:51 Head: Atraumatic. Normocephalic. Eyes: PERRL. EOMI. Conjunctivae are not pale. ENT: Mucous membranes are moist and intact. Oropharynx is clear and symmetric. Neck: Supple. Full ROM. No JVD. No lymphadenopathy. Cardiovascular: Regular rate. Regular rhythm. No murmurs, rubs, or gallops. Distal pulses are 2+ and symmetric. Pulmonary/Chest: No evidence of respiratory distress. Clear to auscultation bilaterally. No wheezing, rales or rhonchi. Abdominal: Soft and non-distended. Mild diffuse pain, no pulsatile masses, no rebound or guarding, no lower abdominal masses palpated. Back: No CVA tenderness. There is lumbar paraspinal tenderness noted. Extremities: Very mild edema to left lower extremity at culver, when compared to left. No streaking or erythema. No knee or ankle swelling noted. STRONG AND PALPABLE PULSES IN FOOT. Foot is warm and dry, no ulcerations or lesions. Pain with straight leg testing of left lower extremity at hip. Skin: Skin is warm and dry. No petechiae. No purpura. No ulcerations. Neurological: Alert, awake. No saddle anesthesia. Motor and sensory exam intact. Psychiatric: Good eye contact. Normal interaction, affect, and behavior. Vital Signs Reviewed: Yes Vital Signs Temp Pulse Resp BP Pulse Ox 05/06/17 12:00 87 17 165/95 H 100 05/06/17 11:40 88 188/112 H 05/06/17 11:16 86 17 188/112 H 98 05/06/17 10:37 79 184/90 H 05/06/17 10:23 85 17 185/91 H 98 05/06/17 09:47 80 197/105 H 05/06/17 09:22 78 18 197/115 H 98 05/06/17 08:40 76 16 131/100 H 99 05/06/17 06:47 98.7 F 81 18 181/95 H 96 Temperature: Afebrile Blood Pressure: Hypertensive Pulse: Regular Appearance: Positive for: Uncomfortable Pain Distress: Mild Medical Decision Making ED Course and Treatment: 05/06/17 07:52 Impression: A 52 year old female with left sided lower extremity pain and burning. Differential Diagnosis included but are not limited to: Neuropathy vs. lumbar radiculopathy vs. peripheral vascular disease Plan: -- Toradol -- Left lower extremity ultrasound -- Reassess and disposition Prior Visits: Notes and results from previous visits were reviewed. The patient was last seen on 03/21/17 for left leg pain. The patient received left foot xray and ultrasound. Images results were unremarkable. The patient was discharged home. Progress Notes: Patient reports pain for several months. On exam, no cellulitis noted. NO ACUTE ARTERIAL DEFICIT NOTED ON EXAM. Ultrasound ordered to evaluate for DVT. I did review patient's prior ultrasound and CT abdomen/pelvis reports from previous visits, no lower abdominal masses had been noted on these imaging studies. 05/06/17 09:03 Upon reevaluation, the patient states her symptoms have improved, but she still has persistent pain. Her preliminary ultrasound report is negative for DVT. A dose of PO Valium will be ordered for possible component of muscle spasm. I have stressed need for follow-up with her PMD, risks and side effects of medications reviewed. - RAD Interpretation Radiology Orders: 05/06/17 07:36 DUPLEX LOWER EXTRM VEIN LEFT [US] Stat - Medication Orders Current Medication Orders: Discontinued Medications Clonidine HCl (Catapres) 0.1 mg PO ONCE STA Stop: 05/06/17 10:26 Last Admin: 05/06/17 10:37 Dose: 0.1 mg MAR Pulse and Blood Pressure Document 05/06/17 10:37 SF (Rec: 05/06/17 10:38 SF [id number]) Pulse Pulse Rate (60-90) 79 Blood Pressure Blood Pressure (100/60-150/90) 184/90 Clonidine HCl (Catapres) 0.1 mg PO ONCE STA Stop: 05/06/17 11:37 Last Admin: 05/06/17 11:40 Dose: 0.1 mg MAR Pulse and Blood Pressure Document 05/06/17 11:40 SF (Rec: 05/06/17 11:40 SF [id number]) Pulse Pulse Rate (60-90) 88 Blood Pressure Blood Pressure (100/60-150/90) 188/112 Diazepam (Valium) 5 mg PO ONCE ONE PRN Reason: Protocol Stop: 05/06/17 09:03 Last Admin: 05/06/17 09:07 Dose: 5 mg Ketorolac Tromethamine (Toradol) 60 mg IM STAT STA Stop: 05/06/17 07:38 Last Admin: 05/06/17 07:47 Dose: 60 mg MAR Pain Assessment Document 05/06/17 07:47 MS (Rec: 05/06/17 07:50 MS [id number]) Pain Reassessment Is this a pain reassessment? Yes Sleep Is patient sleeping during reassessment? No Presence of Pain Presence of Pain Yes Pain Scale Used Pain Scale Used Numeric Location Left, Right or Bilateral Left Upper or Lower Lower Pain Location Body Site Ankle Description Description Burning Intensity of Pain at present 7 Pain Behavior Guarding Facial Grimacing IM Administration Charges Document 05/06/17 07:47 MS (Rec: 05/06/17 07:50 MS [id number]) Injection Site MAR Injection Site Left Vastus Lateralis Charges for Administration # of IM Administrations 1 Lisinopril (Zestril) 20 mg PO STAT STA Stop: 05/06/17 09:29 Last Admin: 05/06/17 09:47 Dose: 20 mg MAR Pulse and Blood Pressure Document 05/06/17 09:47 SF (Rec: 05/06/17 09:48 SF [id number]) Pulse Pulse Rate (60-90) 80 Blood Pressure Blood Pressure (100/60-150/90) 197/105 - Scribe Statement The provider has reviewed the documentation as recorded by the Scribe Adriana Bernstein Provider Scribe Attestation: All medical record entries made by the Scribe were at my direction and personally dictated by me. I have reviewed the chart and agree that the record accurately reflects my personal performance of the history, physical exam, medical decision making, and the department course for this patient. I have also personally directed, reviewed, and agree with the discharge instructions and disposition. Disposition/Present on Arrival - Present on Arrival Any Indicators Present on Arrival: Yes History of DVT/PE: No History of Uncontrolled Diabetes: Yes Urinary Catheter: No History of Decub. Ulcer: No History Surgical Site Infection Following: None - Disposition Have Diagnosis and Disposition been Completed?: Yes Diagnosis: Neuropathy, Leg pain Disposition: HOME/ ROUTINE Disposition Time: 12:00 Patient Plan: Discharge Condition: GOOD Discharge Instructions (ExitCare): Peripheral Neuropathy (ED), Leg Pain (ED) Additional Instructions: Follow-up with Dr. Sotomayor tomorrow. For any chest pain, any headaches, any shortness of breath, any abdominal pain, any nausea or vomiting, get rechecked. For any fevers, redness, swelling, abdominal pain, persistent or worsening of symptoms, get rechecked. Use prescribed medication (valium) with caution, may cause drowsiness. Prescriptions: Naproxen 250 mg PO BID PRN #10 tablet PRN Reason: Pain, Mild (1-3) Diazepam [Valium] 2 mg PO BID PRN #8 tablet PRN Reason: Muscle Spasm Referrals: Kendrick Sotomayor JD, MD [Primary Care Provider] - Follow up with primary Forms: [employer] (Colombian)
[2017-05-06 10:23] VITALS: RESP 17
[2017-05-06 12:01] VITALS: BP 165/95; PULSE 87; O2SAT 100
== END 2017-05-06 12:02 | disposition home or self-care (01) ==
LOC: ED 06:14
DX: G62.9 Polyneuropathy, unspecified (principal); M79.605 Pain in left leg; I10 Essential (primary) hypertension; E11.9 Type 2 diabetes mellitus without complications; Z87.891 Personal history of nicotine dependence
CPT/HCPCS: 93971; 96372; 99285; J1885

== ENCOUNTER 2017-07-03 04:38 | Observation (INO) | payer OTHER ==
[2017-07-03 04:39] VITALS: BMI 30.2
[2017-07-03] MEDS ORDERED: Nitroglycerin 2% Ointment Foilpak UD TOP STA (05:05)
--- NOTE | 2017-07-03 05:09 | ED PDOC ---
Arrival/HPI - General Chief Complaint: Chest Pain Time Seen by Provider: 07/03/17 04:46 Historian: Patient, EMS - History of Present Illness Narrative History of Present Illness (Text): 07/03/17 05:05 Neelam Carpio is a 52 year old female, whose past medical history includes diabetes and hypertension, who presents to the Emergency department complaining of chest pain. Patient states she woke up tonight with sudden onset of sharp mid-sternal chest pain radiating to her left chest, worse with deep inspiration, with associated diaphoresis. Patient reports she then began feeling light-headed and dizzy. Patient states she took Aspirin when she woke up , but reports only minimal relief. Patient denies any fever, chills, shortness of breath, nausea, vomiting, diarrhea, urinary symptoms, back pain, neck pain, headache, or any other complaints. Time/Duration: Prior to Arrival Symptom Onset: Sudden Symptom Course: Unchanged Activities at Onset: Sleeping Context: Home Past Medical History - Provider Review Nursing Documentation Reviewed: Yes - Infectious Disease Hx of Infectious Diseases: None - Tetanus Immunization Tetanus Immunization: Unknown - Cardiac Hx Cardiac Disorders: Yes Hx Heart Murmur: Yes Hx Hypertension: Yes Hx Pacemaker: No - Pulmonary Hx Respiratory Disorders: Yes Hx Asthma: Yes Hx Pneumonia: Yes - Neurological Hx Neurological Disorder: Yes Hx Seizures: Yes - HEENT Hx HEENT Disorder: No - Renal Hx Renal Disorder: No - Endocrine/Metabolic Hx Endocrine Disorders: Yes Hx Diabetes Mellitus Type 2: Yes - Hematological/Oncological Hx Blood Disorders: No Hx Blood Transfusions: No Hx Blood Transfusion Reaction: No - Integumentary Hx Dermatological Disorder: Yes Hx Basal Cell Carcinoma: Yes (BACK) Hx Eczema: Yes Hx Squamous Cell Carcinoma: Yes (Basal cell carcinoma) - Musculoskeletal/Rheumatological Hx Musculoskeletal Disorders: Yes (LT LEG PAIN) - Gastrointestinal Hx Gastrointestinal Disorders: Yes Hx Gall Bladder Disease: Yes (CHOLECYSTECTOMY) HX Swallowing Problems: Yes - Genitourinary/Gynecological Hx Genitourinary Disorders: Yes Hx Urinary Tract Infection: Yes Other/Comment: genital herpes; prolapsed bladder - Psychiatric Hx Psychophysiologic Disorder: Yes Hx Depression: Yes Hx Emotional Abuse: No Hx Panic Disorder: Yes Hx Physical Abuse: No Hx Substance Use: No - Surgical History Hx Cholecystectomy: Yes Hx Hysterectomy: Yes Hx Tonsillectomy: Yes Hx Tubal Ligation: Yes Other/Comment: bladder sling-BLADDER LIFT - Anesthesia Hx Anesthesia: Yes Hx Anesthesia Reactions: No Hx Malignant Hyperthermia: No - Suicidal Assessment Feels Threatened In Home Enviroment: No Family/Social History - Physician Review Nursing Documentation Reviewed: Yes Family/Social History: Unknown Family HX Smoking Status: Former Smoker Hx Alcohol Use: No Hx Substance Use: No Hx Substance Use Treatment: No Allergies/Home Meds Allergies/Adverse Reactions: Allergies Penicillins Allergy (Verified 07/03/17 04:47) ANAPHYLAXIS Home Medications: Home Meds Medication Instructions Recorded Confirmed Aspirin [Aspirin Chewable] 81 mg PO DAILY 03/21/17 07/03/17 Lisinopril [Zestril] 40 mg PO DAILY 03/21/17 07/04/17 Fluticasone/Vilanterol [Breo 2 puff IH DAILY 07/04/17 07/04/17 Ellipta 100-25 Mcg INH] Meloxicam [Mobic] 15 mg PO DAILY 07/04/17 07/04/17 Metoclopramide [Reglan] 5 mg PO TID 07/04/17 07/04/17 Multivitamin [Multivitamins] 1 tab PO DAILY 07/04/17 07/04/17 Ranitidine HCl [Acid Clinical Research Director] 150 mg PO DAILY 07/04/17 07/04/17 Risperidone [Risperdal] 1 mg PO DAILY 07/04/17 07/04/17 Sertraline HCl [Sertraline HCl] 100 mg PO DAILY 07/04/17 07/04/17 hydrOXYzine Pamoate [Vistaril] 50 mg PO DAILY 07/04/17 07/04/17 Review of Systems - Physician Review All systems were reviewed & negative as marked: Yes - Review of Systems Constitutional: Normal. absent: Fevers Eyes: Normal ENT: Normal Respiratory: Normal. absent: SOB, Cough Cardiovascular: Chest Pain Gastrointestinal: Normal. absent: Abdominal Pain, Diarrhea, Nausea, Vomiting Genitourinary Female: Normal. absent: Dysuria, Frequency, Hematuria Musculoskeletal: Normal. absent: Back Pain, Neck Pain Skin: Normal. absent: Rash Neurological: Dizziness, Other (+light-headedness). absent: Headache Endocrine: Normal Hemo/Lymphatic: Normal Psychiatric: Normal Physical Exam Vital Signs Reviewed: Yes Vital Signs Temp Pulse Pulse Resp BP Pulse Ox 07/03/17 15:45 98.2 F 07/03/17 15:39 97 H 19 121/63 95 07/03/17 14:08 98.2 F 115 H 115 H 17 132/77 07/03/17 12:44 105 H 19 136/97 H 96 07/03/17 11:18 88 18 129/76 98 07/03/17 07:52 104 H 19 135/88 96 07/03/17 07:25 102 H 20 100 07/03/17 06:01 98 H 18 148/108 H 98 07/03/17 05:06 98.2 F 100 H 18 166/100 H 99 Temperature: Afebrile Blood Pressure: Hypertensive Pulse: Regular Respiratory Rate: Normal Appearance: Positive for: Well-Appearing, Non-Toxic, Comfortable Pain Distress: None Mental Status: Positive for: Alert and Oriented X 3 - Systems Exam Head: Present: Atraumatic, Normocephalic Pupils: Present: PERRL Extroacular Muscles: Present: EOMI Conjunctiva: Present: Normal Mouth: Present: Moist Mucous Membranes Neck: Present: Normal Range of Motion Respiratory/Chest: Present: Clear to Auscultation, Good Air Exchange. No: Respiratory Distress, Accessory Muscle Use Cardiovascular: Present: Regular Rate and Rhythm, Normal S1, S2. No: Murmurs Abdomen: Present: Normal Bowel Sounds. No: Tenderness, Distention, Peritoneal Signs Back: Present: Normal Inspection Upper Extremity: Present: Normal Inspection. No: Cyanosis, Edema Lower Extremity: Present: Normal Inspection. No: Edema Neurological: Present: GCS=15, CN II-XII Intact, Speech Normal Skin: Present: Warm, Dry, Normal Color. No: Rashes Psychiatric: Present: Alert, Oriented x 3, Normal Insight, Normal Concentration Medical Decision Making ED Course and Treatment: 07/03/17 05:05 Impression: 52 year old female complaining of chest pain, diaphoresis, light-headedness, and dizziness after waking up tonight. Plan: -- EKG -- Labs, cardiac enzymes -- UA -- Reassess and disposition Progress Notes: Reviewed EKG, sinus tachycardia at 104 bpm. LVH with repolarization abnormality. Non-specific ST/T wave changes. case d/w dr carrington request hospitalist, will obs on tele - Lab Interpretations Lab Results: 07/03/17 05:03 07/03/17 05:03 Lab Results 07/03/17 05:19: Urine Color Yellow, Urine Appearance Sl cloudy, Urine pH 6.0, Ur Specific Wilmot 1.020, Urine Protein Trace H, Urine Glucose (UA) >=1000, Urine Ketones Negative, Urine Blood Negative, Urine Nitrate Negative, Urine Bilirubin Negative, Urine Urobilinogen 0.2, Ur Leukocyte Esterase Negative, Urine RBC 0 - 2, Urine WBC 0 - 2, Ur Epithelial Cells 0 - 2 07/03/17 05:03: Sodium 137, Potassium 4.4, Chloride 97 L, Carbon Dioxide 26, Anion Gap 18, BUN 11, Creatinine 0.5 L, Est GFR ( Amer) > 60, Est GFR ( Non-Af Amer) > 60, Random Glucose 343 H* D, Calcium 9.7, Magnesium 1.8, Total Bilirubin 1.0, AST 29, ALT 32, Alkaline Phosphatase 157 H D, Lactate Dehydrogenase 648, Total Creatine Kinase 46, Troponin I 0.01, Total Protein 7.6 , Albumin 4.4, Globulin 3.2, Albumin/Globulin Ratio 1.4 07/03/17 05:03: PT 11.5, INR 1.00, APTT 27.1, D-Dimer, Quantitative < 200 07/03/17 05:03: WBC 5.9, RBC 5.30, Hgb 15.8, Hct 43.7, MCV 82.5, MCH 29.8, MCHC 36.2, RDW 12.7, Plt Count 197, MPV 9.3, Gran % 46.9 L, Lymph % (Auto) 42.8 H, Charles % (Auto) 8.7 H, Eos % (Auto) 1.4 L, Baso % (Auto) 0.2, Gran # 2.77, Lymph # (Auto) 2.5, Charles # (Auto) 0.5, Eos # (Auto) 0.1, Baso # (Auto) 0.01 - RAD Interpretation Radiology Orders: 07/03/17 05:06 CHEST PORTABLE [RAD] Stat - EKG Interpretation Interpreted by ED Physician: Yes Type: 12 lead EKG - Medication Orders Current Medication Orders: Discontinued Medications Aspirin (Aspirin Chewable) 81 mg PO DAILY [facility] Last Admin: 07/03/17 12:09 Dose: 81 mg Aspirin (Ecotrin) 81 mg PO DAILY [facility] Last Admin: 02/16/18 12:26 Dose: 81 mg Atorvastatin Calcium (Lipitor) 40 mg PO DIN [facility] Last Admin: 07/03/17 16:53 Dose: 40 mg Enoxaparin Sodium (Lovenox) 40 mg SC DAILY [facility] PRN Reason: Protocol Last Admin: 07/04/17 12:28 Dose: 40 mg Subcutaneous Administrations Document 07/04/17 12:28 [facility] (Rec: 07/04/17 12:28 [facility] [id number]) Charges for Administration # of Subcutaneous Administrations 1 Fenofibrate (Tricor) 145 mg PO DAILY [facility] Last Admin: 07/03/17 16:52 Dose: 145 mg Gemfibrozil (Lopid) 600 mg PO BID [facility] Last Admin: 07/04/17 12:23 Dose: 600 mg Glimepiride (Amaryl) 4 mg PO ACBD [facility] Last Admin: 07/04/17 08:22 Dose: 4 mg Magnesium Sulfate 2 gm/ Sodium (Chloride) 104 mls @ 102 mls/hr IVPB ONCE ONE Stop: 07/03/17 12:24 Last Admin: 07/03/17 12:00 Dose: 102 mls/hr eMAR Start Stop Document 07/03/17 12:00 SZA (Rec: 07/03/17 12:10 [place] [id number]) Intravenous Solution Start Date 07/03/17 Start Time 12:10 End Date 07/03/17 End time 13:10 Total Infusion Time 60 Sodium Chloride (Sodium Chloride 0.9%) 1,000 mls @ 125 mls/hr IV .Q8H [facility] Last Admin: 07/03/17 12:08 Dose: 125 mls/hr eMAR Start Stop Document 07/03/17 12:08 SZA (Rec: 07/03/17 12:09 [place] [id number]) Intravenous Solution Start Date 07/03/17 Start Time 12:09 Potassium Chloride 20 meq/ (Dextrose/Sodium Chloride) 1,010 mls @ 125 mls/hr IV .Q8H5M [facility] Last Admin: 07/04/17 02:40 Dose: 125 mls/hr eMAR Start Stop Document 07/04/17 02:40 [facility] (Rec: 07/04/17 02:41 [facility] [id number]) Intravenous Solution Start Date 07/04/17 Start Time 02:41 Insulin Detemir (Levemir) 14 unit SC HS [facility] Last Admin: 07/03/17 22:02 Dose: 14 unit MAR Blood Glucose Document 07/03/17 22:02 [place] (Rec: 07/03/17 22:02 [place] [id number]) Blood Glucose Finger Stick Blood Glucose (70-120) 289 Subcutaneous Administrations Document 07/03/17 22:02 [facility] (Rec: 07/03/17 22:02 CO [id number]) Charges for Administration # of Subcutaneous Administrations 1 Insulin Human Lispro (Humalog Med) 0 units SC [facility] PRN Reason: Protocol Last Admin: 07/03/17 12:07 Dose: 3 units MAR Blood Glucose Document 07/03/17 12:07 SZA (Rec: 07/03/17 12:07 SZ [id number]) Blood Glucose Finger Stick Blood Glucose (70-120) 246 Subcutaneous Administrations Document 07/03/17 12:07 SZA (Rec: 07/03/17 12:07 SZ [id number]) Injection Site MAR Injection Site Left Arm Charges for Administration # of Subcutaneous Administrations 1 Insulin Human Lispro (Humalog Low) 0 units SC [facility] PRN Reason: Protocol Last Admin: 07/04/17 13:02 Dose: Not Given Non-Admin Reason: Blood Sugar Parameter Lisinopril (Zestril) 20 mg PO DAILY [facility] Last Admin: 07/04/17 12:27 Dose: 20 mg MAR Pulse and Blood Pressure Document 07/04/17 12:27 [facility] (Rec: 07/04/17 12:28 [id number] Pulse Pulse Rate (60-90) 105 Blood Pressure Blood Pressure (100/60-150/90) 150/89 Naproxen (Anaprox) 275 mg PO BID [facility] Last Admin: 07/04/17 12:26 Dose: 275 mg MAR Pain Assessment Document 07/04/17 12:26 [facility] (Rec: 07/04/17 12:27 [id number] Pain Reassessment Is this a pain reassessment? No Sleep Is patient sleeping during reassessment? No Presence of Pain Presence of Pain Yes Pain Scale Used Pain Scale Used Numeric Location Left, Right or Bilateral Left Pain Location Body Site Leg Description Description Intermittent Intensity of Pain at present 10 Nitroglycerin (Nitro-Bid 2% Oint) 1 ea TOP STAT STA Stop: 07/03/17 05:06 Last Admin: 07/03/17 05:18 Dose: 1 ea Ondansetron HCl (Zofran Inj) 4 mg IVP Q6H PRN PRN Reason: Nausea/Vomiting Pantoprazole Sodium (Protonix Inj) 40 mg IVP Q12 JORGE A Last Admin: 07/04/17 12:32 Dose: 40 mg IVP Administration Document 07/04/17 12:32 [facility] (Rec: 07/04/17 12:32 [facility] [id number]) Charges for Administration # of IVP Administrations 1 Pneumococcal Polyvalent Vaccine (Pneumovax 23 Vaccine) 0.5 ml IM .ONCE ONE Stop: 07/03/17 14:37 Last Admin: 07/03/17 16:55 Dose: MAR Immunization Data Document 07/03/17 16:55 (Rec: 07/03/17 16:55 [id number]) Immunization Data Vaccine Information Sheet Given No Immunization Registry Document 07/03/17 16:55 (Rec: 07/03/17 16:55 [id number]) Immunization Registry Consent Date 04/18/17 - Scribe Statement The provider has reviewed the documentation as recorded by the Bianca Cardenas Provider Scribe Attestation: All medical record entries made by the Scribjuan were at my direction and personally dictated by me. I have reviewed the chart and agree that the record accurately reflects my personal performance of the history, physical exam, medical decision making, and the department course for this patient. I have also personally directed, reviewed, and agree with the discharge instructions and disposition. Disposition/Present on Arrival - Present on Arrival Any Indicators Present on Arrival: No History of DVT/PE: No History of Uncontrolled Diabetes: Yes Urinary Catheter: No History of Decub. Ulcer: No History Surgical Site Infection Following: None - Disposition Have Diagnosis and Disposition been Completed?: Yes Diagnosis: Chest pain Disposition: HOSPITALIZED Disposition Time: 07:00 Condition: GOOD
[2017-07-03 05:20] LABS: BASO # 0.01 K/mm3 (0.0-2.0); BASO % 0.2 % (0.0-3.0); EOS # 0.1 (0.0-0.7); EOS % 1.4 % (1.5-5.0); GRAN # 2.77 (1.4-6.5); GRAN % 46.9 % (50.0-68.0); HEMOGLOBIN 15.8 g/dL (12.0-16.0); LYMPH # 2.5 (1.2-3.4); LYMPH % 42.8 % (22.0-35.0); MEAN CELL VOLUME 82.5 fl (80.0-105.0); MEAN CORPUSCULAR HEMOGLOBIN 29.8 pg (25.0-35.0); MEAN CORPUSCULAR HGB CONC 36.2 g/dl (31.0-37.0); MEAN PLATELET VOLUME 9.3 fl (7.0-11.0); MONO # 0.5 (0.1-0.6); MONO % 8.7 % (1.0-6.0); RBC 5.3 10^6/uL (3.5-6.1); RED CELL DISTRIBUTION WIDTH 12.7 % (11.5-14.5); WHITE BLOOD COUNT 5.9 10^3/ul (4.5-11.0)
[2017-07-03 05:53] LABS: PARTIAL THROMBOPLASTIN TIME 27.1 Seconds (25.1-36.5); PROTHROMBIN TIME 11.5 SECONDS (9.4-12.5)
[2017-07-03 06:48] LABS: ALB/GLOB RATIO 1.4 (1.1-1.8); ALBUMIN 4.4 g/dL (3.0-4.8); ALT/SGPT 32 U/L (7-56); AST/SGOT 29 U/L (14-36); BLOOD UREA NITROGEN 11 mg/dL (7-21); CALCIUM 9.7 mg/dL (8.4-10.5); GFR AFRICAN-AMERICAN > 60; GFR NON-AFRICAN AMERICAN > 60; MAGNESIUM 1.8 mg/dL (1.7-2.2); TROPONIN I 0.01 ng/mL
[2017-07-03 06:53] LABS: URINE BILIRUBIN NEGATIVE (NEGATIVE); URINE BLOOD NEGATIVE (NEGATIVE); URINE GLUCOSE (UA) >=1000 mg/dL (NEGATIVE); URINE LEUKOCYTE ESTERASE NEGATIVE Leu/uL (NEGATIVE); URINE NITRATE NEGATIVE (NEGATIVE); URINE PROTEIN TRACE mg/dL (<30 mg/dL); URINE UROBILINOGEN 0.2 E.U./dL (<1 E.U./dL)
[2017-07-03 06:57] LABS: URINE APPEARANCE SL CLOUDY (CLEAR); URINE COLOR YELLOW (YELLOW)
[2017-07-03 07:05] LABS: URINE RBC 0 - 2 /hpf (0-2); URINE WBC 0 - 2 /hpf (0-6)
[2017-07-03 07:06] LABS: URINE EPITHELIAL CELLS 0 - 2 /hpf (0-5)
[2017-07-03 07:30] LABS: D DIMER < 200 ng/mL (0-243)
[2017-07-03] MEDS ORDERED: Metoprolol Succinate 50 mg XL Tab PO STA (07:34)
--- NOTE | 2017-07-03 10:02 | RAD ---
HISTORY: cp COMPARISON: Chest radiographs 12/02/2016. FINDINGS: LUNGS: No active pulmonary disease. PLEURA: No significant pleural effusion identified, no pneumothorax apparent. CARDIOVASCULAR: Cardiac size remains upper limits of normal. No definite pulmonary vascular derangement appreciable. OSSEOUS STRUCTURES: No significant abnormalities. VISUALIZED UPPER ABDOMEN: Normal. OTHER FINDINGS: None. IMPRESSION: No interval acute cardiopulmonary disease appreciated.Cardiac size remains upper limits normal.
--- NOTE | 2017-07-03 10:38 | CARD ---
APPROVED REPORT EKG Measurement Heart [id number] <Conclusion> Sinus tachycardia Left ventricular hypertrophy with repolarization abnormality Prolonged QTc No change
[2017-07-03 10:45] LABS: TROPONIN I < 0.01 ng/mL
[2017-07-03] MEDS ORDERED: Magnesium Sulfate 2 GM in Sodium Chloride 0.9% 100 ML IVPB ONE (11:23)
[2017-07-03] MEDS ORDERED: Sodium Chloride 0.9% 1,000 ML IV SCH (11:30)
[2017-07-03] MEDS ORDERED: Insulin Lispro (humaLOG) MEDIUM Coverage SC SCH (11:30)
[2017-07-03 11:46] LABS: LIPASE 48 U/L (23-300)
[2017-07-03 11:57] LABS: LDL CHOLESTEROL 124 mg/dL (0-129)
[2017-07-03] MEDS ORDERED: Insulin Lispro 1 UNITS/0.01 ML ONE (12:06)
[2017-07-03 13:29] LABS: HDL CHOLESTEROL 43 mg/dL (29-60)
[2017-07-03] MEDS ORDERED: Pneumococcal 23-Valent Vaccine IM ONE (14:36)
[2017-07-03] MEDS ORDERED: Influenza Vaccine 60 mcg/0.5 mL SYR (4YR UP) IM ONE (14:36)
--- NOTE | 2017-07-03 15:01 | CT ---
PROCEDURE: CT Chest, Abdomen and Pelvis without intravenous contrast HISTORY: multiple emesis midline CP, r/o esophgeal tear COMPARISON: Abdomen and pelvis CT examination dated 02/23/2017 and abdomen ultrasound 04/18/2017. No prior chest CT available for comparison. TECHNIQUE: Helical CT of the chest, abdomen and pelvis was performed without oral or intravenous contrast administered. Radiation dose: Total exam DLP = 1188.88 mGy-cm. This CT exam was performed using one or more of the following dose reduction techniques: Automated exposure control, adjustment of the mA and/or kV according to patient size, and/or use of iterative reconstruction technique. FINDINGS: CT CHEST WITHOUT CONTRAST: LUNGS: No infiltrate is identified bilaterally. Linear atelectasis or fibrosis seen minimally at the bilateral lung bases. No definite pulmonary mass appreciated bilaterally. MEDIASTINUM: Unremarkable. The ascending thoracic aorta upper limits of normal caliber at 3.8 cm. Normal caliber pulmonary arterial trunk. Normal size heart. Trace gas is seen within a few segments of the esophagus with questionable oral contrast or other hyperdense material noted distally. No pneumomediastinum or mediastinal fluid collection is identified at this time. A minimal hiatal hernia is felt to be present. LYMPH NODES: Unremarkable. PLEURA: Unremarkable. No pneumothorax. No pleural fluid. Borderline anterior pericardial fluid. BONES: Unremarkable. OTHER FINDINGS: None. CT ABDOMEN AND PELVIS: LIVER: Diminished attenuation is seen throughout the liver suggesting hepatic steatosis in the interval. No gross mass is seen within the liver. Liver remains upper limits normal size. GALLBLADDER AND BILE DUCTS: Prior cholecystectomy again evident. PANCREAS: Unremarkable. No gross lesion or ductal dilatation. SPLEEN: Unremarkable. ADRENALS: Unremarkable. No mass. KIDNEYS AND URETERS: Limited bilateral perinephric streaky changes are again identified which appear changed. No hydronephrosis. No solid mass. VASCULATURE: Unremarkable. No aortic aneurysm. BOWEL: Stomach is mildly distended with retained food including trace hyperdense material within the lumen. No obstruction. No gross mural thickening. Moderate fecal loading is seen throughout various large-bowel segments. APPENDIX: Normal appendix. PERITONEUM: Unremarkable. No free fluid. No free air. A tiny ventral abdominal hernia is again appreciate containing only fat. No bowel involvement. LYMPH NODES: Unremarkable. No enlarged lymph nodes. BLADDER: Unremarkable. REPRODUCTIVE: Prior hysterectomy again evident. BONES: No acute fracture. OTHER FINDINGS: None. IMPRESSION: 1. No pneumomediastinum or mediastinal fluid collections identified as a secondary sign of potential esophageal rupture. Consider follow-up Gastrografin follow-up by low-density barium esophagram if not artery performed nevertheless. 2. Linear atelectasis or fibrosis bilateral lung bases. 3. Lack of contrast agents limits evaluation of the abdomen and pelvis CT exam with no definitive acute interval findings appreciated as compared prior abdomen and pelvis CT 02/23/2017. Clinically correlate further nevertheless. Retained food mildly distends the stomach. 4. Prior cholecystectomy again evident. 5. Prior hysterectomy again noted.
--- NOTE | 2017-07-03 16:01 | CP.PCM.HP ---
<Solomon Smallwood - Last Filed: 07/03/17 15:56> History of Present Illness - History of Present Illness History of Present Illness: IM H&P for Hospitalist Service CC: Chest pain and diaphoresis HPI: This is a 52 yo F with PMH of DM, HTN, Asthma, Seizures disorder ( unspecified, reports resolved and no longer on medications), Basal cell carcinoma, and depression who presents with complaint of chest pain and associated diaphoresis. Patient reports pain awoke her from sleep, and was more severe than typical chronic chest pain she experiences. She also became diaphoretic, and became concerned she was experiencing a cardiac event. Of note , patient's history and ROS is somewhat limited due to patient being an unreliable historian; she frequently changed her mind regarding whether she experienced certain symptoms, and while initially stating she was compliant with all medications, she later stated she had stopped several and couldn't remember whether she was still taking others. Patient reports nausea and emesis x4-5 days, 5-6 episodes per day, and reports inability to eat due to vomiting up food, although emesis occurs even without PO food intake. States she has been able to tolerate PO fluids. Denies hematemesis or hemoptysis. Describes chest pain as sharp pain directly superior to abdomen, along the midline, with lateral radiation bilaterally of pain. Denies radiation into jaw or left arm. Also complains of urinary frequency. States her blood sugars at home have been "good," and when Denies syncope, near-syncope, vision changes, focal weakness, fevers, chills, diarrhea, constipation, dysuria, hematuria. All other ROS in 12-system review negative. Of note, Trops x2 in ED were negative, and EKG obtained in the ED was notable for Sinus tachycardia at 104, Left ventricular hypertrophy with repolarization abnormality, and Prolonged QTc at 497 (unchanged as compared to prior EKGs). PMH: as above PSH: Hysterectomy, Tubal ligation, Basal cell Ca resection, cholecystectomy, Bladder sling (for prolapse) FHx: Depression SHx: Former smoker (reports 2 ppd for < 1 yr, quit after first asthma attack > 30 yrs prior), denies alcohol or illicits PMD: Dr. Sotomayor Present on Admission - Present on Admission Any Indicators Present on Admission: Yes History of DVT/PE: No History of Uncontrolled Diabetes: Yes Urinary Catheter: No Review of Systems - Review of Systems All systems: reviewed and no additional remarkable complaints except (as per HPI ) Past Patient History - Infectious Disease Hx of Infectious Diseases: None - Tetanus Immunizations Tetanus Immunization: Unknown - Past Medical History & Family History Past Medical History?: Yes - Past Social History Smoking Status: Former Smoker - CARDIAC Hx Cardiac Disorders: Yes (chest pain) Hx Heart Murmur: Yes (leakey valve) Hx Hypercholesterolemia: Yes Hx Hypertension: Yes Hx Pacemaker: No - PULMONARY Hx Respiratory Disorders: Yes Hx Asthma: Yes Hx Pneumonia: Yes - NEUROLOGICAL Hx Neurological Disorder: Yes Hx Seizures: Yes - HEENT Hx HEENT Problems: No - RENAL Hx Chronic Kidney Disease: No - ENDOCRINE/METABOLIC Hx Endocrine Disorders: Yes Hx Diabetes Mellitus Type 2: Yes - HEMATOLOGICAL/ONCOLOGICAL Hx Cancer: Yes (skin ca left back left arm removed 2016) - INTEGUMENTARY Hx Dermatological Problems: Yes Hx Eczema: Yes Other/Comment: pt unsure what kind of skin ca she had removed from left back and left arm in the summer 2016 - MUSCULOSKELETAL/RHEUMATOLOGICAL Hx Musculoskeletal Disorders: Yes Hx Arthritis: Yes Hx Back Pain: Yes Hx Falls: No Other/Comment: recently developed l heel swelling pain radiates up left leg to left back, c/o burning pain - GASTROINTESTINAL Hx Gastrointestinal Disorders: Yes Hx Gall Bladder Disease: Yes (CHOLECYSTECTOMY) HX Swallowing Problems: Yes Other/Comment: ron at [facility] (formerly [facility]) 04/15/17 dx hiatal hernia, duodenitis, gastritis, repeated in 2018 same dx, colonoscopy 1 or 2 yrs ago 2 colon polyps removed - GENITOURINARY/GYNECOLOGICAL Hx Genitourinary Disorders: Yes Hx Incontinence: Yes (was incontinent before bladder sling) Hx Urinary Tract Infection: Yes Other/Comment: genital herpes; prolapsed bladder, pt has a bladder sling is not incontinent anymore - PSYCHIATRIC Hx Psychophysiologic Disorder: Yes Hx Anxiety: Yes Hx Depression: Yes Hx Emotional Abuse: No Hx Panic Symptoms: Yes Hx Physical Abuse: No Hx Substance Use: No - SURGICAL HISTORY Hx Cardiac Catheterization: Yes (12/16/13) Hx Cholecystectomy: Yes Hx Hysterectomy: Yes Other/Comment: bladder sling-BLADDER LIFT, tubal, tonsillectomy - ANESTHESIA Hx Anesthesia: Yes Hx Anesthesia Reactions: No Hx Malignant Hyperthermia: No Meds Allergies/Adverse Reactions: Allergies Allergy/AdvReac Type Severity Reaction Status Date / Time Penicillins Allergy ANAPHYLAXIS Verified 07/03/17 04:47 Physical Exam - Constitutional Appears: Non-toxic, No Acute Distress - Head Exam Head Exam: ATRAUMATIC, NORMAL INSPECTION, NORMOCEPHALIC - Eye Exam Eye Exam: EOMI, Normal appearance. absent: Conjunctival injection, Scleral icterus Pupil Exam: absent: Irregular - ENT Exam ENT Exam: Mucous Membranes Moist - Neck Exam Neck exam: Positive for: Normal Inspection - Respiratory Exam Respiratory Exam: Chest Wall Tenderness (static tenderness at chest wall midline , immediately superior to abdomen, not exacerbated with palpation), Clear to Auscultation Bilateral, NORMAL BREATHING PATTERN. absent: Accessory Muscle Use , Decreased Breath Sounds, Rales, Rhonchi, Wheezes - Cardiovascular Exam Cardiovascular Exam: Tachycardia, REGULAR RHYTHM, +S1, +S2. absent: Bradycardia , Irregular Rhythm, JVD, RRR, +S4 - GI/Abdominal Exam GI & Abdominal Exam: Diminished Bowel Sounds, Soft, Tenderness (right sided abdominal tenderness). absent: Distended, Firm, Normal Bowel Sounds, Rigid - Extremities Exam Extremities exam: Positive for: calf tenderness (reports left calf tenderness, but no visble reaction to deep palpation), normal capillary refill, pedal pulses present. Negative for: joint swelling, pedal edema - Neurological Exam Neurological exam: Alert, Oriented x3 Additional comments: awake and alert, following all commands, moving extremities spontaneously and on commands motor grossly intact and equal - Psychiatric Exam Psychiatric exam: Anxious, Normal Affect - Skin Skin Exam: Dry, Intact, Normal Color, Warm Results - Vital Signs Recent Vital Signs: Last Vital Signs Temp 98.2 F 07/03/17 14:08 Pulse 97 H 07/03/17 15:39 Resp 19 07/03/17 15:39 BP 121/63 07/03/17 15:39 Pulse Ox 95 07/03/17 15:39 - Labs Result Diagrams: 07/03/17 05:03 07/03/17 05:03 Labs: Laboratory Results - last 24 hr 07/03/17 07/03/17 07/03/17 10:15 11:36 11:36 POC Glucose (mg/dL) Lactate Dehydrogenase 445 Total Creatine Kinase 37 Troponin I < 0.01 Triglycerides 826 H Cholesterol 338 H LDL Cholesterol Direct 124 HDL Cholesterol 43 Lipase 48 Alcohol, Quantitative < 10 07/03/17 11:46 POC Glucose (mg/dL) 246 H Lactate Dehydrogenase Total Creatine Kinase Troponin I Triglycerides Cholesterol LDL Cholesterol Direct HDL Cholesterol Lipase Alcohol, Quantitative Assessment & Plan - Assessment and Plan (Free Text) Assessment: This is a 52 yo F with PMH of DM, HTN, Asthma, Seizures disorder (unspecified, reports resolved and no longer on medications), Basal cell carcinoma, and depression who presents with complaint of chest pain and associated diaphoresis. She is being admitted for ACS r/o, management of nausea/emesis, and r/o of possible esophageal rupture given midline chest pain and repeated emesis. Plan: 1) Chest pain -ACS vs asthma vs anxiety vs 2/2 recurrent emesis -Trops x2 negative, pending 1 more -EKG notable for tachycardia and prolonged QTc, inverted T waves in I and aVL, unchanged from prior EKG, will repeat one tomorrow AM -Cardio (Dr. Santos) consulted, appreciate all recs -Questionable compliance with meds, starting on Asa 81mg, Zestril 20mg daily, and as per Cardio Lipitor 40mg -given elevated QTc, emesis, and Mag 1.8 in ED, will given Mag-Sulfate IVPB 2g x1 to improve QTc -Zofran PRN q6 for nausea/emesis, Protonix IVP 40mg q12 -D-dimer negative, so unlikely PE -Given recurrent emesis and location of chest pain, obtaining CT chest/abd/ pelvis to rule out esophageal perforation -Most recent echo in November 2016, EF > 60%, no severe valvular or chamber abnormalities reported 2) Nausea/emesis -2/2 poorly controlled DM vs enteritis vs pancreatitis -pt reports multiple prior followup with GI and multiple Colonoscopies, for which she was always placed on courses of antibiotics after due to "infections" -per Chart review, prior EGD in Mar 2017 notable for acute gastritis, biopsies taken for H pylori -Lipid panel pending, A1c ordered, Lipase ordered -start NS 125cc/hr -NPO pending CT chest/abd/pelvis 3) DM -medium sliding scale lispro, fingersticks q6 -holding diet pending CT chest/abd/pelvis 4) HTN -starting on Zestril 20mg, will confirm home medications with patient's outpatient pharmacy 5) Depression -denies on any medications right now, will confirm with outpatient pharmacy -not acutely depressed at time of exam, will continue to monitor Dispo: Telemetry, pending Cardio recs, pending Lipid panel/A1c and CT abd/pelvis /chest FEN: NPO, NS 125cc/hr Access: Peripheral IV Consults: Cardio Ppx: Protonix q12 covers for GI, Lovenox 40mg SC daily for DVT ppx Patent seen, reviewed, and discussed with attending, Dr. Lock. Decision To Admit - Pt Status Changed To: Hospital Disposition Of: Observation - . Bed Request Type: Telemetry <iNck Lock - Last Filed: 07/03/17 18:16> Results - Vital Signs Recent Vital Signs: Last Vital Signs Temp 98.2 F 07/03/17 15:45 Pulse 97 H 07/03/17 15:39 Resp 19 07/03/17 15:39 BP 121/63 07/03/17 15:39 Pulse Ox 95 07/03/17 15:39 - Labs Result Diagrams: 07/03/17 05:03 07/03/17 05:03 Labs: Laboratory Results - last 24 hr 07/03/17 07/03/17 07/03/17 10:15 11:36 11:36 POC Glucose (mg/dL) Hemoglobin A1c 8.5 H Lactate Dehydrogenase 445 Total Creatine Kinase 37 Troponin I < 0.01 Triglycerides 826 H Cholesterol 338 H LDL Cholesterol Direct 124 HDL Cholesterol 43 Lipase 48 Alcohol, Quantitative 07/03/17 07/03/17 11:36 11:46 POC Glucose (mg/dL) 246 H Hemoglobin A1c Lactate Dehydrogenase Total Creatine Kinase Troponin I Triglycerides Cholesterol LDL Cholesterol Direct HDL Cholesterol Lipase Alcohol, Quantitative < 10 Attending/Attestation - Attestation I have personally seen and examined this patient.: Yes I have fully participated in the care of the patient.: Yes I have reviewed all pertinent clinical information: Yes Notes (Text): 07/03/17 18:12 52 year old female with past medical history of hypertension, diabetes and gastritis who presents today with complaint of chest pain with nausea and vomiting. Will admit to telemetry unit and obtain serial cardiac enzymes to rule out ACS. Continue with aspirin, statin and zestril. CT chest/abdomen/pelvis is also ordered. Continue with zofran prn and protonix. Patient was counselled on medication compliance. Nick Lock MD Hospitalist.
[2017-07-03] MEDS: Insulin Lispro (humaLOG) LOW Coverage SC SCH ×2 (16:54→22:33)
[2017-07-03] MEDS: Potassium Chloride 20 MEQ in Dextrose 5%/0.45% NS 1,000 ML IV SCH (16:56)
[2017-07-03] MEDS: Naproxen 275 mg Tab PO SCH (16:58)
[2017-07-03] MEDS ORDERED: Insulin Detemir 100 units/ml Vial (Levemir) SC SCH ×2 (22:00)
--- NOTE | 2017-07-03 22:30 | CON ---
DATE: ENDOCRINOLOGY CONSULTATION LOCATION: Room 260. HISTORY OF PRESENT ILLNESS: This is a 52-year-old female with known history of type 2 diabetes and hypertension, presenting here with sudden onset of precordial and substernal chest pain with shortness of breath and is now being admitted for cardiac workup for acute coronary syndrome and is being referred now for diabetic evaluation because of supervening hyperglycemic accelerations as noted thereof. PAST MEDICAL HISTORY: As mentioned above, history of type 2 diabetes, currently taking metformin at 1 g b.i.d. as ordered; history of hypertension and dyslipidemia. MEDICATIONS: She is currently using Zestril at 20 mg once daily and Lipitor at 10 mg once daily as noted. FAMILY HISTORY: Positive for hypertension and heart disease. SOCIAL HISTORY: The patient is a former smoker. No other known substance use. Has a very supportive family otherwise. PAST SURGICAL HISTORY: Prior history of total abdominal hysterectomy with a prior prolapsed uterus and also had a bladder sling procedure undertaken. She also had a prior cholecystectomy as noted. There is also prior history of genital herpes, on and off medications at this time. REVIEW OF SYSTEMS: As mentioned above. Admits to generalized body weakness with easy fatigability and tiredness and suboptimal energy level. Also admits to episodic dizziness and lightheadedness, worse on the day of admission. As mentioned above, admits to sudden onset of substernal chest pain radiating to the left to precordial area and with associated shortness of breath especially on exertion. Her oral intake has been variable with nausea, dyspepsia and vague upper abdominal pains. Also admits to recent polyuria and nocturia as noted. PHYSICAL EXAMINATION: GENERAL: This is an overweight female, in no apparent distress. VITAL SIGNS: Blood pressure of 150/90; pulse of 100 beats per minute, regular; temperature 99; respirations 20; height is 5 feet 1 inches; weight is 160 pounds. HEENT: Head normocephalic. Eyes anicteric with pink conjunctivae. Funduscopy is not possible at this time. Ears, nose and throat otherwise normal. NECK: Supple. Thyroid gland is normal in size. No carotid bruits or cervical adenopathy. CARDIOPULMONARY: Some adynamic precordium. S1, S2 is rapid and regular. LUNGS: Clear to auscultation. ABDOMEN: Flat, soft with positive bowel sounds. EXTREMITIES: No peripheral edema. Pulses are +2 bilaterally. LABORATORY DATA: Her chemistry shows a BUN of 11, sodium 137, potassium 4.4, chloride 97, CO2 of 26, glucose 343 and creatinine 0.5. Her triglyceride levels are 826 with cholesterol of 338, HDL of 43, LDL of 124. Lipase is 48. Troponin is less than 0.01 with an LDH of 445 and initially of 648 as noted. ASSESSMENT: This is a 52-year-old female with uncontrolled and decompensated type 2 insulin-requiring diabetes with marked hyperglycemic accelerations and presenting here with acute coronary syndrome and will be undergoing cardiac workup as given and as noted. PLAN OF MANAGEMENT: We will concur with the addition of basal insulin with Levemir given at bedtime and we will titrate the dose to 14 units subcu at bedtime daily to start tonight. We will also add Amaryl given as 4 mg b.i.d. before meals to start today as ordered. We will hold off the resumption of metformin only because of possible cardiac catheterization and/or angiographic procedures to be undertaken thereof. We will consider the addition of Januvia as indicated to optimize metabolic control. We will modify the coverage scale to obviate hypoglycemia and detailed orders have been given. We will obtain serial chemistries and supplement accordingly as needed. We will also obtain a hemoglobin A1c to confirm her prior glycemic control and baseline thyroid function studies will be ordered. We will follow. Hetal Chandra MD
--- NOTE | 2017-07-03 22:41 | CON ---
DATE: 07/03/2017 LOCATION: The patient is in emergency room 600, bed 2. REASON FOR CONSULTATION: Chest pain, diabetes, hypertension, hyperlipidemia. HISTORY OF PRESENT ILLNESS: A 52-year-old female admitted with the history that since 2 years she is having chest pain in the mid chest and sometimes she has shortness of breath. Chest pain, she states, continues, some time it is more, some time it is less, but she is never free of chest pain. She also has tenderness on anterior chest wall in the mid chest area. Denies any nausea, vomiting or any relation to the food with this pain. PAST MEDICAL HISTORY: Significant for hypertension, diabetes, hyperlipidemia. The patient had cardiac catheterization on 12/16/2012 and was found to have nonobstructive coronary artery disease. PERSONAL HISTORY: Denies smoking, denies drinking. ALLERGIES: THE PATIENT IS ALLERGIC TO PENICILLIN. SHE STATES SHE GETS ANAPHYLACTIC REACTION. PREVIOUS CARDIAC WORKUP: The patient had cardiac catheterization on 12/16/2012 that showed only distal LAD about 50% to 55% diffuse disease. No non-flow obstructive stenosis are noted. At the time of the cath, ejection fraction was 55%, EDP was in the range of 12. The patient has stress test on 12/02/2016, which was normal with normal ejection fraction of 60%. The patient had echo on 12/03/2016, which showed normal chamber sizes with LV ejection fraction of 60% to 65% and there was trace mitral regurgitation, tricuspid regurgitation, pulmonic regurgitation and aortic regurgitation. RVSP was normal with 24 mmHg. HOME MEDICATIONS: Included lisinopril 20 mg daily, Lipitor 10 mg daily, aspirin 81 mg daily. REVIEW OF SYSTEMS: All the systems reviewed; positive mentioned in the history, otherwise negative. PHYSICAL EXAMINATION: VITAL SIGNS: Blood pressure 135/88, respirations 19, pulse 104, the patient is afebrile. HEENT: Head is normocephalic. Eyes: Pupils normal. Conjunctivae normal. Nose and throat normal. NECK: JVP low. Carotids equal. THORAX: The patient had tenderness in the mid chest area where she complains pain. LUNGS: Clear. CARDIOVASCULAR: S1 and S2. ABDOMEN: Soft. No tenderness. No organomegaly. Bowel sounds normal. EXTREMITIES: No clubbing. No cyanosis. She states sometimes she has vague leg pain, sometimes she has headache, sometimes she has some back pain also. LABORATORY DATA: WBC 5.9, hemoglobin 15.8, hematocrit 43.7, platelets 197. Sodium 137, potassium 4.4, BUN 11, creatinine 0.5, random glucose 343. Calcium, magnesium, AST, ALT normal. Total protein 7.6, albumin 4.4, cholesterol 338, LDL 124. Chest x-ray, no significant abnormality. EKG showed regular sinus rhythm, LVH with ST-T changes. Troponin x2, less than 0.01. DIAGNOSES: Chest pain probably musculoskeletal, continuous pain since last 2 years, hypertension, diabetes, cardiac catheterization on 12/16/2012, only diffuse distal disease 50% to 55% in left anterior descending, normal ejection fraction. Stress test on 12/02/2016, normal with ejection fraction of 60%. Echocardiogram on 12/03/2016 also normal as mentioned above. The patient has high cholesterol. We will continue aspirin 81 mg daily, lisinopril 20 daily, and we will put atorvastatin 40 mg daily because cholesterol is very high. The patient's home medications show that she is on 10 mg daily. We will add Naprosyn along with Protonix to her musculoskeletal chest pain. We will follow with you. James Hopkins MD
[2017-07-04] MEDS: Potassium Chloride 20 MEQ in Dextrose 5%/0.45% NS 1,000 ML IV SCH (02:40)
[2017-07-04 05:43] VITALS: TEMP 98.5; O2SAT 98
[2017-07-04 06:36] LABS: BASO # 0.02 K/mm3 (0.0-2.0); BASO % 0.3 % (0.0-3.0); EOS # 0.1 (0.0-0.7); EOS % 1.1 % (1.5-5.0); GRAN # 3.67 (1.4-6.5); LYMPH # 2.2 (1.2-3.4); LYMPH % 34.3 % (22.0-35.0); MEAN CELL VOLUME 84.3 fl (80.0-105.0); MEAN CORPUSCULAR HEMOGLOBIN 29.2 pg (25.0-35.0); MEAN CORPUSCULAR HGB CONC 34.7 g/dl (31.0-37.0); MEAN PLATELET VOLUME 9.4 fl (7.0-11.0); MONO # 0.5 (0.1-0.6); MONO % 8.3 % (1.0-6.0); RBC 4.79 10^6/uL (3.5-6.1); WHITE BLOOD COUNT 6.5 10^3/ul (4.5-11.0)
[2017-07-04 06:54] LABS: LDL CHOLESTEROL 99 mg/dL (0-129)
[2017-07-04 06:57] LABS: ALB/GLOB RATIO 1.4 (1.1-1.8); ALBUMIN 3.5 g/dL (3.0-4.8); ALT/SGPT 29 U/L (7-56); AST/SGOT 16 U/L (14-36); BLOOD UREA NITROGEN 15 mg/dL (7-21); CALCIUM 9.2 mg/dL (8.4-10.5); GFR AFRICAN-AMERICAN > 60; GFR NON-AFRICAN AMERICAN > 60; HDL CHOLESTEROL 37 mg/dL (29-60); MAGNESIUM 2.2 mg/dL (1.7-2.2)
[2017-07-04 07:20] LABS: FREE T4 1.16 ng/dL (0.78-2.19); T4 8.3 ug/dL (5.5-11.0)
[2017-07-04] MEDS: Insulin Lispro (humaLOG) LOW Coverage SC SCH ×2 (08:14→13:02)
[2017-07-04] MEDS ORDERED: Enoxaparin 40 mg Syringe SC SCH (10:00)
[2017-07-04] MEDS: Naproxen 275 mg Tab PO SCH (12:26)
[2017-07-04 12:31] VITALS: BP 150/89; PULSE 105
--- NOTE | 2017-07-04 13:11 | US ---
HISTORY: Leg pain and swelling. Evaluate for DVT PHYSICIAN(S): Moody Leblanc MD. TECHNIQUE: Duplex sonography and color-flow Doppler with graded compression were used to evaluate the deep venous systems of both lower extremities. FINDINGS: The visualized deep venous systems of both lower extremities are sonographically normal and compressible. Normal wave forms and augmentation are seen. There is no sonographic evidence for deep venous thrombosis in the visualized segments of both lower extremities. IMPRESSION: No sonographic evidence for deep venous thrombosis in the visualized segments of both lower extremities.
[2017-07-04 13:53] VITALS: RESP 18
--- NOTE | 2017-07-04 14:25 | PN ---
DATE: 07/04/2017 REASON FOR THE CONSULTATION: Followup chest pain, nonischemic, musculoskeletal; hypertension; hyperlipidemia. SUBJECTIVE: The patient is still complaining of chest pain, very tender in the right side of the chest; obviously, not in apparent distress. PHYSICAL EXAMINATION: VITAL SIGNS: Temperature afebrile, heart rate 91, and blood pressure 134/81. HEENT: PERRLA. Extraocular muscles are intact. NECK: Supple. No carotid bruit or thyromegaly. CHEST: Clear to auscultation. HEART: S1 and S2, regular. ABDOMEN: Soft. EXTREMITIES: Clubbing and cyanosis negative. LABORATORY DATA: Blood workup as follows: WBC 6.5, hemoglobin 14, hematocrit 40.4, and platelet count 175. Chemistry shows sodium 134, potassium 4.5, chloride 104, carbon dioxide 26, anion gap of 15, creatinine 0.6. Blood sugar 320. Total protein 5.9, albumin 3.5, albumin-globulin ratio 1.5. Triglycerides 7.5, cholesterol 269, LDL 99, HDL 37, TSH 1.06. Troponin remains flat, they are 0.01 x2. IMPRESSION: , no evidence of acute myocardial infarction; metabolic disorder; hypertriglyceridemia; uncontrolled diabetes, atypical chest pain status post cardiac catheterization on 12/16/2012, mid LAD 50 to diffuse stenosis. No focal flow limiting stenosis. Most recently, the patient's stress test 12/02/2016, there is a normal ejection fraction 60%, echo 12/03/2016 shows ejection fraction 65%. RECOMMENDATION: We will discontinue telemetry, aggressive medical treatment, aggressive control of diabetes, aggressive control of cholesterol. Continue aspirin, continue Naprosyn. Deep venous thrombosis prophylaxis. We will start Lopid 600 b.i.d. because the patient is on fenofibrate (Tricor), which is insufficient to lower hypertriglyceridemia. We will follow with you. We will discontinue telemetry and further recommendation made according to the hospital course. We will discontinue telemetry. We will follow with you. James Santos MD [facility] # [id number]
--- NOTE | 2017-07-04 14:53 | CP.PCM.DIS ---
<Solomon Smallwood - Last Filed: 07/04/17 14:54> Provider - Provider Date of Admission: 07/03/17 07:13 Attending physician: Nick Lock MD Primary care physician: Kendrick Sotomayor JD, MD Consults: Endo: Dr. Chandra Cardio: Dr. Santos GI: Dr. De La Cruz Time Spent in preparation of Discharge (in minutes): 35 Diagnosis - Discharge Diagnosis (1) Hypertriglyceridemia Status: Acute Priority: High (2) Nausea & vomiting Status: Resolved Priority: Medium (3) Chest pain Status: Chronic Priority: High (4) Hyperglycemia Status: Acute Priority: High (5) Type II diabetes mellitus Status: Chronic Priority: Medium Hospital Course - Lab Results Lab Results: Most Recent Lab Values WBC 6.5 10^3/ul (4.5-11.0) 07/04/17 06:02 RBC 4.79 10^6/uL (3.5-6.1) 07/04/17 06:02 Hgb 14.0 g/dL (12.0-16.0) 07/04/17 06:02 Hct 40.4 % (36.0-48.0) 07/04/17 06:02 MCV 84.3 fl (80.0-105.0) 07/04/17 06:02 MCH 29.2 pg (25.0-35.0) 07/04/17 06:02 MCHC 34.7 g/dl (31.0-37.0) 07/04/17 06:02 RDW 13.0 % (11.5-14.5) 07/04/17 06:02 Plt Count 175 10^3/uL (120.0-450.0) 07/04/17 06:02 MPV 9.4 fl (7.0-11.0) 07/04/17 06:02 Gran % 56.0 % (50.0-68.0) 07/04/17 06:02 Lymph % (Auto) 34.3 % (22.0-35.0) 07/04/17 06:02 Edmunds % (Auto) 8.3 % (1.0-6.0) H 07/04/17 06:02 Eos % (Auto) 1.1 % (1.5-5.0) L 07/04/17 06:02 Baso % (Auto) 0.3 % (0.0-3.0) 07/04/17 06:02 Gran # 3.67 (1.4-6.5) 07/04/17 06:02 Lymph # (Auto) 2.2 (1.2-3.4) 07/04/17 06:02 Edmunds # (Auto) 0.5 (0.1-0.6) 07/04/17 06:02 Eos # (Auto) 0.1 (0.0-0.7) 07/04/17 06:02 Baso # (Auto) 0.02 K/mm3 (0.0-2.0) 07/04/17 06:02 PT 11.5 SECONDS (9.4-12.5) 07/03/17 05:03 INR 1.00 (0.93-1.08) 07/03/17 05:03 APTT 27.1 Seconds (25.1-36.5) 07/03/17 05:03 D-Dimer, Quantitative < 200 ng/mL (0-243) 07/03/17 05:03 Sodium 137 mmol/L (132-148) 07/04/17 06:02 Potassium 4.5 mmol/L (3.6-5.0) 07/04/17 06:02 Chloride 104 mmol/L (98-107) 07/04/17 06:02 Carbon Dioxide 26 mmol/L (21-33) 07/04/17 06:02 Anion Gap 12 (10-20) 07/04/17 06:02 BUN 15 mg/dL (7-21) 07/04/17 06:02 Creatinine 0.6 mg/dl (0.7-1.2) L 07/04/17 06:02 Est GFR ( Amer) > 60 07/04/17 06:02 Est GFR (Non-Af Amer) > 60 07/04/17 06:02 POC Glucose (mg/dL) 276 mg/dL (65-110) H 07/04/17 07:19 Random Glucose 320 mg/dL (70-110) H* 07/04/17 06:02 Hemoglobin A1c 8.5 % (4.2-6.5) H 07/03/17 11:36 Calcium 9.2 mg/dL (8.4-10.5) 07/04/17 06:02 Phosphorus 3.1 mg/dL (2.5-4.5) 07/04/17 06:02 Magnesium 2.2 mg/dL (1.7-2.2) 07/04/17 06:02 Total Bilirubin 0.8 mg/dL (0.2-1.3) 07/04/17 06:02 AST 16 U/L (14-36) 07/04/17 06:02 ALT 29 U/L (7-56) 07/04/17 06:02 Alkaline Phosphatase 84 U/L (38-126) 07/04/17 06:02 Lactate Dehydrogenase 445 U/L (333-699) 07/03/17 10:15 Total Creatine Kinase 37 U/L (35-230) 07/03/17 10:15 Troponin I < 0.01 ng/mL 07/03/17 17:45 Total Protein 5.9 g/dL (5.8-8.3) 07/04/17 06:02 Albumin 3.5 g/dL (3.0-4.8) 07/04/17 06:02 Globulin 2.4 gm/dL 07/04/17 06:02 Albumin/Globulin Ratio 1.4 (1.1-1.8) 07/04/17 06:02 Triglycerides 715 mg/dL (35-160) H 07/04/17 06:02 Cholesterol 269 mg/dL (130-200) H 07/04/17 06:02 LDL Cholesterol Direct 99 mg/dL (0-129) 07/04/17 06:02 HDL Cholesterol 37 mg/dL (29-60) 07/04/17 06:02 Lipase 48 U/L (23-300) 07/03/17 11:36 Free T4 1.16 ng/dL (0.78-2.19) 07/04/17 06:02 Thyroxine (T4) 8.3 ug/dL (5.5-11.0) 07/04/17 06:02 TSH 3rd Generation 1.06 mIU/mL (0.46-4.68) 07/04/17 06:02 Urine Color Yellow (YELLOW) 07/03/17 05:19 Urine Appearance Sl cloudy (CLEAR) 07/03/17 05:19 Urine pH 6.0 (4.7-8.0) 07/03/17 05:19 Ur Specific Neversink 1.020 (1.005-1.035) 07/03/17 05:19 Urine Protein Trace mg/dL (<30 mg/dL) H 07/03/17 05:19 Urine Glucose (UA) >=1000 mg/dL (NEGATIVE) 07/03/17 05:19 Urine Ketones Negative mg/dL (NEGATIVE) 07/03/17 05:19 Urine Blood Negative (NEGATIVE) 07/03/17 05:19 Urine Nitrate Negative (NEGATIVE) 07/03/17 05:19 Urine Bilirubin Negative (NEGATIVE) 07/03/17 05:19 Urine Urobilinogen 0.2 E.U./dL (<1 E.U./dL) 07/03/17 05:19 Ur Leukocyte Esterase Negative Brigette/uL (NEGATIVE) 07/03/17 05:19 Urine RBC 0 - 2 /hpf (0-2) 07/03/17 05:19 Urine WBC 0 - 2 /hpf (0-6) 07/03/17 05:19 Ur Epithelial Cells 0 - 2 /hpf (0-5) 07/03/17 05:19 Alcohol, Quantitative < 10 mg/dL (0-10) 07/03/17 11:36 - Hospital Course Hospital Course: This is a 52 yo F with PMH of DM, HTN, Asthma, Seizures disorder (unspecified, reports resolved and no longer on medications), Basal cell carcinoma, and depression who presents with complaint of chest pain and associated diaphoresis. She was admitted for ACS r/o, management of nausea/emesis, and r/ o of possible esophageal rupture given midline chest pain and repeated emesis. She was later found to have significantly elevated triglycerides, concerning for hypertriglyceride pancreatitis. Today, her nausea and emesis has resolved ( tolerated dinner last night and all PO intake today). While here, she was seen by Endo, Cardio, and GI. As per Endo, needs improved control of her diabetes, multiple medications to improve her triglycerides, and will need to be back on insulin. As per Endo, patient prescribed Amaryl 4mg BID, Lantus 30 units nightly, Janumet 50mg/1000mg BID, Tricor 145mg daily, and Fish oil 2000mg BID. As per GI, encouraged compliance of prior PPI regimen (pt noncompliant) given endoscopy with gastritis previously; no new scoping indicated. As per Cardio, non-cardiac chest pain, no acute cardiac intervention indicated, and should follow up as an outpatient. She was also given a prescription for PRN Carafate for any recurrence of nausea and/or emesis. Patient's new scripts were transmitted to her preferred pharmacy electronically, and her medication changes and additions were reviewed with her and family at bedside extensively. She was instructed to start all new medications and take as prescribed, to take all non-cancelled home medications as prescribed, and to follow up with her PMD, her Sales Service Rep, and an Technical Sales Advisor of her choice within 1 week of discharge. She expressed understanding and agreement with these instructions , all questions were answered to her satisfaction, and she was then discharged. Patient seen, reviewed, and discussed with attending, Dr. Lock. Discharge Exam - Head Exam Head Exam: ATRAUMATIC, NORMAL INSPECTION, NORMOCEPHALIC - Additional Findings Additional findings: - Constitutional Appears: Non-toxic, No Acute Distress - Head Exam Head Exam: ATRAUMATIC, NORMAL INSPECTION, NORMOCEPHALIC - Eye Exam Eye Exam: EOMI, Normal appearance. absent: Conjunctival injection, Scleral icterus Pupil Exam: absent: Irregular - ENT Exam ENT Exam: Mucous Membranes Moist - Neck Exam Neck exam: Positive for: Normal Inspection - Respiratory Exam Respiratory Exam: Clear to Auscultation Bilateral, NORMAL BREATHING PATTERN. absent: Accessory Muscle Use, Decreased Breath Sounds, Rales, Rhonchi, Wheezes - Cardiovascular Exam Cardiovascular Exam: Tachycardia, REGULAR RHYTHM, +S1, +S2. absent: Bradycardia , Irregular Rhythm, JVD, RRR, +S4 - GI/Abdominal Exam GI & Abdominal Exam: Normal Bowel Sounds, Soft, Tenderness (epigastric and bilateral lower quadrant, mildly tender to palpation). absent: Distended, Firm , Rigid - Extremities Exam Extremities exam: Positive for: calf tenderness (reports left calf tenderness, but no visible reaction to deep palpation), normal capillary refill, pedal pulses present. Negative for: joint swelling, pedal edema - Neurological Exam Neurological exam: Alert, Oriented x3 awake and alert, following all commands, moving extremities spontaneously and on commands motor grossly intact and equal - Psychiatric Exam Psychiatric exam: Anxious, Normal Affect - Skin Skin Exam: Dry, Intact, Normal Color, Warm Discharge Plan - Discharge Medications Prescriptions: Atorvastatin [Lipitor] 40 mg PO DAILY #30 tab Fenofibrate [Tricor] 145 mg PO DAILY #30 tab Glimepiride [Amaryl] 4 mg PO BID #60 tablet Insulin Glargine,Hum.rec.anlog [Lantus Solostar] 30 unit SQ HS #10 insuln.pen Gravity-3 Fatty Acids/Fish Oil [Fish Oil 1,000 mg Capsule] 2,000 mg PO BID #120 sgl Pantoprazole Sodium [Protonix] 40 mg PO BID #60 ect Sitagliptin Phos/Metformin HCl [Janumet 50-1,000 mg Tablet] 1 each PO BID #60 tablet Sucralfate [Carafate] 1 gm PO Q6H PRN #60 tab PRN Reason: Nausea/Vomiting - Follow Up Plan Condition: GOOD Disposition: HOME/ ROUTINE Instructions: Type 2 Diabetes, Heart Healthy Diet, Diabetes Diet , Nausea and Vomiting, Adult (DC), High Triglycerides Additional Instructions: -Please follow up with your PMD (Dr. Sotomayor), your Sales Service Rep (Dr. Santos), and an generator operator straight bevel gear of your choice within 1 week of discharge. -Please take all new medications as prescribed; all new medications have been electronically sent to your pharmacy, and a summary of medicine changes is listed below. -Please return to the hospital if you experience new or concerning symptoms. Stop Lipitor 10mg, start Lipitor 40mg daily Stop Omeprazole 40mg, start Protonix 40mg twice a day Stop Glimepiride 1mg, start Glimepiride 4mg twice a day Stop Metformin 1000mg, start Janumet 50/1000mg twice a day Start Tricor 145mg daily, Fish oil 2000mg twice a day, and Lantus 30 units nightly Start Carafate 1mg every 6 hours, only when needed, for nausea/vomiting. Continue all other home medications prescribed to you by your PMD and Sales Service Rep that you have not been instructed to stop Referrals: James Santos MD [Staff Provider] - Kendrick Sotomayor JD, MD [Primary Care Provider] - <Nick Lock - Last Filed: 07/04/17 16:44> Provider - Provider Date of Admission: 07/03/17 07:13 Attending physician: Nick Lock MD Primary care physician: Kendrick Sotomayor JD, MD Hospital Course - Lab Results Lab Results: Most Recent Lab Values WBC 6.5 10^3/ul (4.5-11.0) 07/04/17 06:02 RBC 4.79 10^6/uL (3.5-6.1) 07/04/17 06:02 Hgb 14.0 g/dL (12.0-16.0) 07/04/17 06:02 Hct 40.4 % (36.0-48.0) 07/04/17 06:02 MCV 84.3 fl (80.0-105.0) 07/04/17 06:02 MCH 29.2 pg (25.0-35.0) 07/04/17 06:02 MCHC 34.7 g/dl (31.0-37.0) 07/04/17 06:02 RDW 13.0 % (11.5-14.5) 07/04/17 06:02 Plt Count 175 10^3/uL (120.0-450.0) 07/04/17 06:02 MPV 9.4 fl (7.0-11.0) 07/04/17 06:02 Gran % 56.0 % (50.0-68.0) 07/04/17 06:02 Lymph % (Auto) 34.3 % (22.0-35.0) 07/04/17 06:02 Edmunds % (Auto) 8.3 % (1.0-6.0) H 07/04/17 06:02 Eos % (Auto) 1.1 % (1.5-5.0) L 07/04/17 06:02 Baso % (Auto) 0.3 % (0.0-3.0) 07/04/17 06:02 Gran # 3.67 (1.4-6.5) 07/04/17 06:02 Lymph # (Auto) 2.2 (1.2-3.4) 07/04/17 06:02 Edmunds # (Auto) 0.5 (0.1-0.6) 07/04/17 06:02 Eos # (Auto) 0.1 (0.0-0.7) 07/04/17 06:02 Baso # (Auto) 0.02 K/mm3 (0.0-2.0) 07/04/17 06:02 PT 11.5 SECONDS (9.4-12.5) 07/03/17 05:03 INR 1.00 (0.93-1.08) 07/03/17 05:03 APTT 27.1 Seconds (25.1-36.5) 07/03/17 05:03 D-Dimer, Quantitative < 200 ng/mL (0-243) 07/03/17 05:03 Sodium 137 mmol/L (132-148) 07/04/17 06:02 Potassium 4.5 mmol/L (3.6-5.0) 07/04/17 06:02 Chloride 104 mmol/L (98-107) 07/04/17 06:02 Carbon Dioxide 26 mmol/L (21-33) 07/04/17 06:02 Anion Gap 12 (10-20) 07/04/17 06:02 BUN 15 mg/dL (7-21) 07/04/17 06:02 Creatinine 0.6 mg/dl (0.7-1.2) L 07/04/17 06:02 Est GFR ( Amer) > 60 07/04/17 06:02 Est GFR (Non-Af Amer) > 60 07/04/17 06:02 POC Glucose (mg/dL) 239 mg/dL (65-110) H 07/04/17 11:40 Random Glucose 320 mg/dL (70-110) H* 07/04/17 06:02 Hemoglobin A1c 8.5 % (4.2-6.5) H 07/03/17 11:36 Calcium 9.2 mg/dL (8.4-10.5) 07/04/17 06:02 Phosphorus 3.1 mg/dL (2.5-4.5) 07/04/17 06:02 Magnesium 2.2 mg/dL (1.7-2.2) 07/04/17 06:02 Total Bilirubin 0.8 mg/dL (0.2-1.3) 07/04/17 06:02 AST 16 U/L (14-36) 07/04/17 06:02 ALT 29 U/L (7-56) 07/04/17 06:02 Alkaline Phosphatase 84 U/L (38-126) 07/04/17 06:02 Lactate Dehydrogenase 445 U/L (333-699) 07/03/17 10:15 Total Creatine Kinase 37 U/L (35-230) 07/03/17 10:15 Troponin I < 0.01 ng/mL 07/03/17 17:45 Total Protein 5.9 g/dL (5.8-8.3) 07/04/17 06:02 Albumin 3.5 g/dL (3.0-4.8) 07/04/17 06:02 Globulin 2.4 gm/dL 07/04/17 06:02 Albumin/Globulin Ratio 1.4 (1.1-1.8) 07/04/17 06:02 Triglycerides 715 mg/dL (35-160) H 07/04/17 06:02 Cholesterol 269 mg/dL (130-200) H 07/04/17 06:02 LDL Cholesterol Direct 99 mg/dL (0-129) 07/04/17 06:02 HDL Cholesterol 37 mg/dL (29-60) 07/04/17 06:02 Lipase 48 U/L (23-300) 07/03/17 11:36 Free T4 1.16 ng/dL (0.78-2.19) 07/04/17 06:02 Thyroxine (T4) 8.3 ug/dL (5.5-11.0) 07/04/17 06:02 TSH 3rd Generation 1.06 mIU/mL (0.46-4.68) 07/04/17 06:02 Urine Color Yellow (YELLOW) 07/03/17 05:19 Urine Appearance Sl cloudy (CLEAR) 07/03/17 05:19 Urine pH 6.0 (4.7-8.0) 07/03/17 05:19 Ur Specific Neversink 1.020 (1.005-1.035) 07/03/17 05:19 Urine Protein Trace mg/dL (<30 mg/dL) H 07/03/17 05:19 Urine Glucose (UA) >=1000 mg/dL (NEGATIVE) 07/03/17 05:19 Urine Ketones Negative mg/dL (NEGATIVE) 07/03/17 05:19 Urine Blood Negative (NEGATIVE) 07/03/17 05:19 Urine Nitrate Negative (NEGATIVE) 07/03/17 05:19 Urine Bilirubin Negative (NEGATIVE) 07/03/17 05:19 Urine Urobilinogen 0.2 E.U./dL (<1 E.U./dL) 07/03/17 05:19 Ur Leukocyte Esterase Negative Brigette/uL (NEGATIVE) 07/03/17 05:19 Urine RBC 0 - 2 /hpf (0-2) 07/03/17 05:19 Urine WBC 0 - 2 /hpf (0-6) 07/03/17 05:19 Ur Epithelial Cells 0 - 2 /hpf (0-5) 07/03/17 05:19 Alcohol, Quantitative < 10 mg/dL (0-10) 07/03/17 11:36 Attending/Attestation - Attestation I have personally seen and examined this patient.: Yes I have fully participated in the care of the patient.: Yes I have reviewed all pertinent clinical information, including history, physical exam and plan: Yes Notes (Text): 07/04/17 16:41 52 year old female with past medical history of hypertension, diabetes and gastritis who presented with complaint of chest pain with nausea and vomiting. Serial cardiac enzymes were negative and ACS was ruled out ACS. She was seen by cardiology and maintained on aspirin, statin and zestril. CT chest/abdomen/pelvis was reviewed. Her N/V resolved and her abdominal pain improved. She was tolerating diet. Case was discussed with GI who recommended PPI and carafate. GERD / acid reflux precautions and mediation compliance was discussed with the patient. She also had uncontrolled diabetes and hypertriglyceridemia. She was evaluated by generator operator straight bevel gear and her medications were adjusted as above. Patient is discharged home to follow up with her pmd. Counselled on medication and dietary compliance. Follow up with generator operator straight bevel gear, GI and supplier engineer. Nick Lock MD Hospitalist.
--- NOTE | 2017-07-04 16:22 | CON ---
DATE: ADDENDUM Review of laboratory data as indicated in a consult, I just dictated, indicates triglycerides at 826 with elevated glucose. With the patient's history, one might entertain possibility of some degree of pancreatitis given the elevated triglycerides. Note that if pancreatitis is entertained for her diagnosis at some time point, we may consider initiating lactated ringers at a high level of infusion, roughly about 200 an hour or slightly less. In addition, medications to decrease lipids. I reviewed the orders. Currently, Dr. Hetal Chandra is seeing the patient for elevated blood sugars. Note that no radiologic evidence of pancreatitis is seen on CT scan. Apparently, she has not had episodes of pancreatitis before. Elevated triglycerides almost entertained as in the differential diagnosis. Hamilton De La Cruz DO, PhD MTDNikia
--- NOTE | 2017-07-04 16:43 | CON ---
DATE: 07/04/2017 HISTORY OF PRESENT ILLNESS: I saw Ms. Carpio this morning. She is a 52-year-old white female with past medical history of esophagitis, gastric ulcers, hiatal hernia, diabetes, hypertension, asthma, seizures, basal cell carcinoma, and depression. The patient indicates she was admitted with complaints of severe chest pain as well as increasing dyspnea on exertion over the past 4 to 6 weeks. The pain she has been having in her chest is different than a severe asthma exacerbation. It is also different than acid reflux. She indicates at some time point, pain in her chest may be extremely severe, may be associated with diaphoretic episode, associated with a funny feeling in the back of her neck. She denied any radiation down to her arms. She denied any recent nausea or vomiting; however when she first started experiencing the chest discomfort associated with dyspnea on exertion, she did have periodic nausea with emesis. Note that, she does not currently have dysphagia to solid foods or liquids. She does tend to cut food into small portions in order to eat this. Note that, she had a recent upper endoscopy within the past 6 weeks, that is, in early May. At that particular time point, the patient was found to have 2 gastric ulcers as well as a small hiatal hernia. This was performed by a GI person in [place]. Previously, she had been evaluated by Dr. Sheppard at [facility]. She denied hematemesis or rectal bleeding. Also, she denied recent endoscopic procedures for esophageal food impaction. PHYSICAL EXAMINATION: VITAL SIGNS: I reviewed this patient's vital signs. HEENT: Noncontributory. LUNGS: Clear to auscultation with no wheezing. HEART: Mildly tachy, irregular rhythm. ABDOMEN: Soft. Mild tenderness in the epigastric area so is the left upper quadrant. No tenderness elicited in periumbilical area, right lower quadrant, or left lower quadrant. LABORATORY DATA: I reviewed this patient's laboratory data. H and H are 15.8 and 43.7. INR within normal limits. Her glucose has been running in 200 range. Triglycerides are 826, cholesterol 338. In question, she had no idea what triglycerides were. Her cholesterol has run elevated in the past. Evaluation of the CT, abdomen and pelvis, noncontributory except for fibrosis in the lung bases, prior cholecystectomy, no evidence of pancreatitis on CT evaluation. ASSESSMENT AND PLAN: This is a 52-year-old white female admitted with complaints of severe chest pain associated with diaphoresis, and increasing shortness of breath associated with dyspnea on exertion over the past 6 to 8 weeks. She understands that she cannot walk more than one-third of her block without getting short of breath. Also, she has difficulty walking upstairs. Obviously from a history point of view, it sounds more cardiac in origin. Further evaluation by cardiac service warranted. Note that, according to Dr. Hopkins's note, the patient had a cardiac catheterization in 2012 showing moderate left anterior descending lesion. She had a stress test on 12/02/2016, which showed normal ejection fraction. From a GI point of view, the patient does not want an upper endoscopy at the current time point since one was done in a couple of days ago. Note that, she previously was treated for Helicobacter pylori and does not practice antireflux precautions. The patient drinks significant amount of water at bedtime. She must practice antireflux precautions as well as being on a daily dose of proton pump inhibitor. If chest pain issues continue and the cardiac issues are not high on the risk for etiology, consider using Carafate suspension after meals, that is, one tablespoon after meals and at bedtime. Hamilton De La Cruz DO, PhD MTDNikia
--- NOTE | 2017-07-05 01:53 | PN ---
DATE: ENDOCRINOLOGY FOLLOWUP NOTE LOCATION: Room 260. SUBJECTIVE: This is a 52-year-old female with known history of type 2 diabetes, presenting here with acute coronary syndrome and undergoing cardiac workup at this time and is also being followed closely for metabolic management. Her glycemic levels are fluctuating as noted thereof and the patient actually has made it very clear that she is refusing insulin therapy not only for inpatient use, but also for outpatient diabetic management. Her glycemic levels are fluctuating as noted and the latest glucose levels have ranged from 276-289 mg/dL. Her bedtime glucose was 320 mg/dL. The latest chemistry showed a BUN of 15, sodium 137, potassium 4.5, chloride 104, CO2 of 26, glucose 320 and creatinine 0.6. So at this time, we will highly recommend at least basal insulin to be given at bedtime with Lantus to be given as 30 units subcu at bedtime daily as ordered. This was discussed with the medical transcription supervisor on the case and they will try to convince the patient to at least accept basal insulin to be given at bedtime as ordered. We will change the oral hypoglycemic therapy not only to improve her metabolic profile, but also to enhance compliance and adherence for outpatient diabetic management. We will switch her over to a combination of Janumet given as b.i.d. and Amaryl given as 4 mg b.i.d. before meals as ordered. She will follow with her medical doctor for outpatient diabetic management. We will follow. Hetal Chandra MD
== END 2017-07-04 16:28 | disposition home or self-care (01) ==
LOC: ED 04:38 → ERH 07:13 → 2RNO 16:04
PROVIDERS: ADMIT Hospitalist; ATTEND Internal Medicine
DX: R07.89 Other chest pain (principal); I24.9 Acute ischemic heart disease, unspecified; E78.5 Hyperlipidemia, unspecified; I11.9 Hypertensive heart disease without heart failure; I51.7 Cardiomegaly; A60.00 Herpesviral infection of urogenital system, unspecified; E11.65 Type 2 diabetes mellitus with hyperglycemia; E78.1 Pure hyperglyceridemia; E78.00 Pure hypercholesterolemia, unspecified; F41.0 Panic disorder [episodic paroxysmal anxiety]; K25.9 Gastric ulcer, unspecified as acute or chronic, without hemorrhage or perforation; K44.9 Diaphragmatic hernia without obstruction or gangrene; Z79.1 Long term (current) use of non-steroidal anti-inflammatories (NSAID); Z79.4 Long term (current) use of insulin; Z79.82 Long term (current) use of aspirin; Z79.899 Other long term (current) drug therapy; Z85.828 Personal history of other malignant neoplasm of skin; Z86.010 Personal history of colon polyps; Z87.01 Personal history of pneumonia (recurrent); Z87.440 Personal history of urinary (tract) infections; Z87.891 Personal history of nicotine dependence; Z90.49 Acquired absence of other specified parts of digestive tract; Z90.710 Acquired absence of both cervix and uterus; Z91.19 Patient's noncompliance with other medical treatment and regimen; Z98.51 Tubal ligation status; I08.3 Combined rheumatic disorders of mitral, aortic and tricuspid valves
CPT/HCPCS: 36415; 71045; 71250; 74176; 80053; 80061; 80320; 81001; 82550; 82948; 83036; 83615; 83690; 83735; 84100; 84439; 84443; 84484; 85025; 85378; 85610; 85730; 93005; 93970; 96365; 96372; 96375; 96376; 99285; C9113; G0378; J1650; J3475; J7040; J7042

== ENCOUNTER 2018-01-19 07:45 | Emergency (ER) | payer OTHER ==
[2018-01-19 08:05] VITALS: RESP 18; BMI 31.5
--- NOTE | 2018-01-19 08:27 | ED PDOC ---
Arrival/HPI - General Chief Complaint: Lower Extremity Problem/Injury Time Seen by Provider: 01/19/18 08:17 Historian: Patient - History of Present Illness Narrative History of Present Illness (Text): 01/19/18 08:18 52 year old female, with past medical history of hypertension and diabetes, presents to the Emergency department complaining of left foot and ankle pain radiating to her left leg and hip since 1 month. Patient states visiting her PMD Dr. Sootmayor for the presented symptoms and was started on anti-inflammatory medication with no improvement to symptoms. As per patient, symptoms have worsened today prompting her to present to the Emergency department for medical evaluation. Patient denies any history of fall or trauma to the area. Patient informs similar symptoms in the past for which she was seen in the Emergency department multiple times with no acute findings. Patient denies any fevers, chills, headache, dizziness, chest pain, shortness of breath, dyspnea on exertion, cough, abdominal pain, nausea, vomiting, diarrhea, back pain, neck pain, dysuria, changes in bowel movement, numbness/tingling or any other complaints. PMD: Dr. Sotomayor Time/Duration: < month Symptom Onset: Gradual Symptom Course: Unchanged Quality: Aching Activities at Onset: Light Context: Home Past Medical History - Provider Review Nursing Documentation Reviewed: Yes - Infectious Disease Hx of Infectious Diseases: None - Tetanus Immunization Tetanus Immunization: Unknown - Cardiac Hx Cardiac Disorders: Yes Hx Heart Murmur: Yes Hx Hypertension: Yes Hx Pacemaker: No - Pulmonary Hx Respiratory Disorders: Yes Hx Asthma: Yes Hx Pneumonia: Yes - Neurological Hx Neurological Disorder: Yes Hx Seizures: Yes - HEENT Hx HEENT Disorder: No - Renal Hx Renal Disorder: No - Endocrine/Metabolic Hx Endocrine Disorders: Yes Hx Diabetes Mellitus Type 2: Yes - Hematological/Oncological Hx Blood Disorders: No Hx Blood Transfusions: No Hx Blood Transfusion Reaction: No - Integumentary Hx Dermatological Disorder: Yes Hx Basal Cell Carcinoma: Yes (BACK) Hx Eczema: Yes Hx Squamous Cell Carcinoma: Yes (Basal cell carcinoma) - Musculoskeletal/Rheumatological Hx Musculoskeletal Disorders: Yes (LT LEG PAIN) - Gastrointestinal Hx Gastrointestinal Disorders: Yes Hx Gall Bladder Disease: Yes (CHOLECYSTECTOMY) HX Swallowing Problems: Yes - Genitourinary/Gynecological Hx Genitourinary Disorders: Yes Hx Urinary Tract Infection: Yes Other/Comment: genital herpes; prolapsed bladder - Psychiatric Hx Psychophysiologic Disorder: Yes Hx Depression: Yes Hx Emotional Abuse: No Hx Panic Disorder: Yes Hx Physical Abuse: No Hx Substance Use: No - Surgical History Hx Cholecystectomy: Yes Hx Hysterectomy: Yes Hx Tonsillectomy: Yes Hx Tubal Ligation: Yes Other/Comment: bladder sling-BLADDER LIFT - Anesthesia Hx Anesthesia: Yes Hx Anesthesia Reactions: No Hx Malignant Hyperthermia: No - Suicidal Assessment Feels Threatened In Home Enviroment: No Family/Social History - Physician Review Nursing Documentation Reviewed: Yes Family/Social History: No Known Family HX Smoking Status: Former Smoker Hx Alcohol Use: No Hx Substance Use: No Hx Substance Use Treatment: No Allergies/Home Meds Allergies/Adverse Reactions: Allergies Penicillins Allergy (Verified 01/19/18 07:59) ANAPHYLAXIS Home Medications: Home Meds Medication Instructions Recorded Confirmed Aspirin [Aspirin Chewable] 81 mg PO DAILY 03/21/17 07/03/17 Lisinopril [Zestril] 40 mg PO DAILY 03/21/17 07/04/17 Fluticasone/Vilanterol [Breo 2 puff IH DAILY 07/04/17 07/04/17 Ellipta 100-25 Mcg INH] Meloxicam [Mobic] 15 mg PO DAILY 07/04/17 07/04/17 Metoclopramide [Reglan] 5 mg PO TID 07/04/17 07/04/17 Multivitamin [Multivitamins] 1 tab PO DAILY 07/04/17 07/04/17 Ranitidine HCl [Acid Process Coordinator] 150 mg PO DAILY 07/04/17 07/04/17 Risperidone [Risperdal] 1 mg PO DAILY 07/04/17 07/04/17 Sertraline HCl [Sertraline HCl] 100 mg PO DAILY 07/04/17 07/04/17 hydrOXYzine Pamoate [Vistaril] 50 mg PO DAILY 07/04/17 07/04/17 Review of Systems - Physician Review All systems were reviewed & negative as marked: Yes - Review of Systems Constitutional: absent: Fevers Respiratory: absent: SOB, Cough Cardiovascular: absent: Chest Pain, [place] Gastrointestinal: absent: Abdominal Pain, Stool Changes, Diarrhea, Nausea, Vomiting Genitourinary Female: absent: Dysuria Musculoskeletal: Other (left foot and ankle pain). absent: Back Pain, Neck Pain Neurological: absent: Headache, Dizziness Physical Exam - Physical Exam Narrative Physical Exam (Text): 01/19/18 08:15 Constitutional: No acute distress. Head: Normocephalic. Atraumatic. Eyes: PERRL. ENT: Moist mucous membranes. Neck: Supple. Cardiovascular: Regular rate. Chest: No tenderness. Respiratory: Clear to auscultation bilaterally. GI: Soft. Nontender. Nondistended. Back: No CVA tenderness. No midline tenderness. Musculoskeletal: No swelling of extremities. Tenderness to plantar fascia of left foot. No asymmetric edema. Positive leg raise. Normal pulses in bilateral lower extremities. Skin: No rash. Neurologic: Alert, no focal deficit. Vital Signs Reviewed: Yes Vital Signs Temp Pulse Resp BP Pulse Ox 01/19/18 10:04 98 F 86 18 145/78 97 01/19/18 07:59 98.3 F 93 H 18 165/87 H 98 Temperature: Afebrile Blood Pressure: Hypertensive Pulse: Regular Respiratory Rate: Normal Appearance: Positive for: Well-Appearing, Non-Toxic, Comfortable Pain Distress: None Mental Status: Positive for: Alert and Oriented X 3 Medical Decision Making ED Course and Treatment: 01/19/18 08:31 Impression: 52 year old female presents to the Emergency department complaining of left foot and ankle discomfort since 1 month. Plan: -- Toradol -- X-ray of left foot -- Reassess and disposition Prior Visits: Notes and results from previous visits were reviewed. Patient was seen in the Emergency department on 05/06/17 for left lower extremity discomfort and was discharged home after negative findings. Patient was seen on 03/21/17 for left leg pain. Patient received left foot xray and ultrasound. Images results were unremarkable. Patient was discharged home after improvement. Progress Notes: XR shows no fracture or dislocation. Discharged home, instructed to follow up with PMD and possible MRI. - RAD Interpretation Radiology Orders: 01/19/18 08:20 FOOT LEFT 3 VIEWS ROUTINE [RAD] Stat - Medication Orders Current Medication Orders: Discontinued Medications Ketorolac Tromethamine (Toradol) 60 mg IM STAT STA Stop: 01/19/18 08:19 Last Admin: 01/19/18 08:32 Dose: 60 mg [facility] Pain Assessment Document 01/19/18 08:32 [facility] (Rec: 01/19/18 08:32 [facility]-[id number]) Pain Reassessment Is this a pain reassessment? No IM Administration Charges Document 01/19/18 08:32 [facility] (Rec: 01/19/18 08:32 [facility]-[id number]) Injection Site MAR Injection Site Right Deltoid Charges for Administration # of IM Administrations 1 Re-Assess: MAR Pain Assessment Document 01/19/18 09:32 [facility] (Rec: 01/19/18 10:06 [facility]-[id number]) Pain Reassessment Is this a pain reassessment? Yes Presence of Pain Presence of Pain Yes Pain Scale Used Pain Scale Used Numeric - Scribe Statement The provider has reviewed the documentation as recorded by the Scribe Kimberly Sanders. All medical record entries made by the Scribe were at my direction and personally dictated by me. I have reviewed the chart and agree that the record accurately reflects my personal performance of the history, physical exam, medical decision making, and the department course for this patient. I have also personally directed, reviewed, and agree with the discharge instructions and disposition. Disposition/Present on Arrival - Present on Arrival Any Indicators Present on Arrival: Yes History of DVT/PE: No History of Uncontrolled Diabetes: Yes Urinary Catheter: No History of Decub. Ulcer: No History Surgical Site Infection Following: None - Disposition Have Diagnosis and Disposition been Completed?: Yes Diagnosis: Leg pain Disposition: HOME/ ROUTINE Disposition Time: 09:51 Patient Plan: Discharge Condition: STABLE Discharge Instructions (ExitCare): Peripheral Neuropathy Referrals: Kendrick Sotomayor JD, MD [Primary Care Provider] - Follow up with primary Forms: [employer] (E[place]ian)
[2018-01-19 10:06] VITALS: BP 145/78; PULSE 86; TEMP 98; O2SAT 97
--- NOTE | 2018-01-19 12:16 | RAD ---
Date of service: 01/19/2018 PROCEDURE: Left Foot Radiographs. HISTORY: foot pain COMPARISON: None. FINDINGS: BONES: Normal. No fracture. JOINTS: Arthritic degenerative changes are noted. SOFT TISSUES: Normal. OTHER FINDINGS: None. IMPRESSION: No evidence of acute fracture or dislocation.
== END 2018-01-19 10:06 | disposition home or self-care (01) ==
LOC: ED 07:45
DX: M79.605 Pain in left leg (principal); E11.9 Type 2 diabetes mellitus without complications; I10 Essential (primary) hypertension; Z87.891 Personal history of nicotine dependence
CPT/HCPCS: 73630; 96372; 99283; J1885

== ENCOUNTER 2018-02-09 12:47 | Emergency (ER) | payer OTHER ==
[2018-02-09 13:52] VITALS: BMI 27.4
[2018-02-09 14:02] VITALS: RESP 18
[2018-02-09 14:15] LABS: URINE BILIRUBIN NEGATIVE (NEGATIVE); URINE BLOOD NEGATIVE (NEGATIVE); URINE GLUCOSE (UA) >=1000 mg/dL (NEGATIVE); URINE LEUKOCYTE ESTERASE TRACE Leu/uL (NEGATIVE); URINE PROTEIN NEGATIVE mg/dL (<30 mg/dL); URINE UROBILINOGEN 0.2 E.U./dL (<1 E.U./dL)
--- NOTE | 2018-02-09 14:15 | ED PDOC ---
Arrival/HPI - General Chief Complaint: Abdominal Pain Time Seen by Provider: 02/09/18 14:00 Historian: Patient - History of Present Illness Narrative History of Present Illness (Text): 02/09/18 14:12 53yo female who present with complaint of pelvic pressure with urinary frequency x few days. Denies hematuria, dysuria, fever, back pain, chills, nausea, vomiting, diarrhea, constipation, any other complaint. Past Medical History - Provider Review Nursing Documentation Reviewed: Yes - Infectious Disease Hx of Infectious Diseases: None - Tetanus Immunization Tetanus Immunization: Unknown - Cardiac Hx Cardiac Disorders: Yes Hx Heart Murmur: Yes Hx Hypertension: Yes Hx Pacemaker: No - Pulmonary Hx Respiratory Disorders: Yes Hx Asthma: Yes Hx Pneumonia: Yes - Neurological Hx Neurological Disorder: Yes Hx Seizures: Yes - HEENT Hx HEENT Disorder: No - Renal Hx Renal Disorder: No - Endocrine/Metabolic Hx Endocrine Disorders: Yes Hx Diabetes Mellitus Type 2: Yes - Hematological/Oncological Hx Blood Disorders: No Hx Blood Transfusions: No Hx Blood Transfusion Reaction: No - Integumentary Hx Dermatological Disorder: Yes Hx Basal Cell Carcinoma: Yes (BACK) Hx Eczema: Yes Hx Squamous Cell Carcinoma: Yes (Basal cell carcinoma) - Musculoskeletal/Rheumatological Hx Musculoskeletal Disorders: Yes (LT LEG PAIN) - Gastrointestinal Hx Gastrointestinal Disorders: Yes Hx Gall Bladder Disease: Yes (CHOLECYSTECTOMY) HX Swallowing Problems: Yes - Genitourinary/Gynecological Hx Genitourinary Disorders: Yes Hx Urinary Tract Infection: Yes Other/Comment: genital herpes; prolapsed bladder - Psychiatric Hx Psychophysiologic Disorder: Yes Hx Depression: Yes Hx Emotional Abuse: No Hx Panic Disorder: Yes Hx Physical Abuse: No Hx Substance Use: No - Surgical History Hx Cholecystectomy: Yes Hx Hysterectomy: Yes Hx Tonsillectomy: Yes Hx Tubal Ligation: Yes Other/Comment: bladder sling-BLADDER LIFT - Anesthesia Hx Anesthesia: Yes Hx Anesthesia Reactions: No Hx Malignant Hyperthermia: No - Suicidal Assessment Feels Threatened In Home Enviroment: No Family/Social History - Physician Review Nursing Documentation Reviewed: Yes Family/Social History: Unknown Family HX Smoking Status: Former Smoker Hx Alcohol Use: No Hx Substance Use: No Hx Substance Use Treatment: No Allergies/Home Meds Allergies/Adverse Reactions: Allergies Penicillins Allergy (Verified 02/09/18 13:52) ANAPHYLAXIS Home Medications: Home Meds Medication Instructions Recorded Confirmed Aspirin [Aspirin Chewable] 81 mg PO DAILY 03/21/17 07/03/17 Lisinopril [Zestril] 40 mg PO DAILY 03/21/17 07/04/17 Fluticasone/Vilanterol [Breo 2 puff IH DAILY 07/04/17 07/04/17 Ellipta 100-25 Mcg INH] Meloxicam [Mobic] 15 mg PO DAILY 07/04/17 07/04/17 Metoclopramide [Reglan] 5 mg PO TID 07/04/17 07/04/17 Multivitamin [Multivitamins] 1 tab PO DAILY 07/04/17 07/04/17 Ranitidine HCl [Acid Flexo Press Operator] 150 mg PO DAILY 07/04/17 07/04/17 Risperidone [Risperdal] 1 mg PO DAILY 07/04/17 07/04/17 Sertraline HCl [Sertraline HCl] 100 mg PO DAILY 07/04/17 07/04/17 hydrOXYzine Pamoate [Vistaril] 50 mg PO DAILY 07/04/17 07/04/17 Review of Systems - Physician Review All systems were reviewed & negative as marked: Yes - Review of Systems Constitutional: Normal Eyes: Normal ENT: Normal Respiratory: Normal Cardiovascular: Normal Gastrointestinal: Abdominal Pain. absent: Constipation, Diarrhea, Nausea, Vomiting, Hematochezia, Hematemesis Genitourinary Female: Normal Musculoskeletal: Normal Skin: Normal Neurological: Normal Endocrine: Normal Hemo/Lymphatic: Normal Psychiatric: Normal Physical Exam Vital Signs Reviewed: Yes Vital Signs Temp Pulse Resp BP Pulse Ox 02/09/18 13:59 98.4 F 96 H 18 162/85 H 97 Temperature: Afebrile Blood Pressure: Normal Pulse: Regular Respiratory Rate: Normal Appearance: Positive for: Well-Appearing, Non-Toxic, Comfortable Pain Distress: None Mental Status: Positive for: Alert and Oriented X 3 - Systems Exam Head: Present: Atraumatic, Normocephalic Pupils: Present: PERRL Extroacular Muscles: Present: EOMI Conjunctiva: Present: Normal Mouth: Present: Moist Mucous Membranes Neck: Present: Normal Range of Motion Respiratory/Chest: Present: Clear to Auscultation, Good Air Exchange. No: Respiratory Distress, Accessory Muscle Use Cardiovascular: Present: Regular Rate and Rhythm, Normal S1, S2. No: Murmurs Abdomen: Present: Other (Soft). No: Tenderness, Distention, Peritoneal Signs, Rebound, Guarding, McBurney's Point Tender, Rovsing's Sign Present Back: Present: Normal Inspection Upper Extremity: Present: Normal Inspection. No: Cyanosis, Edema Lower Extremity: Present: Normal Inspection. No: Edema Neurological: Present: GCS=15, CN II-XII Intact, Speech Normal Skin: Present: Warm, Dry, Normal Color. No: Rashes Psychiatric: Present: Alert, Oriented x 3, Normal Insight, Normal Concentration Medical Decision Making - Lab Interpretations Lab Results: Lab Results 02/09/18 14:00: Urine Color Yellow, Urine Appearance Clear, Urine pH 6.0, Ur Specific [place] 1.020, Urine Protein Negative, Urine Glucose (UA) >=1000, Urine Ketones Negative, Urine Blood Negative, Urine Nitrate Negative, Urine Bilirubin Negative, Urine Urobilinogen 0.2, Ur Leukocyte Esterase Trace H, Urine RBC 0 - 2, Urine WBC 1 - 3, Ur Epithelial Cells 3 - 4, Urine Bacteria Few - Medication Orders Current Medication Orders: Discontinued Medications Nitrofurantoin Macrocrystals (Macrobid) 100 mg PO ONCE STA PRN Reason: Protocol Stop: 02/09/18 14:19 Disposition/Present on Arrival - Present on Arrival Any Indicators Present on Arrival: No History of DVT/PE: No History of Uncontrolled Diabetes: Yes Urinary Catheter: No History of Decub. Ulcer: No History Surgical Site Infection Following: None - Disposition Have Diagnosis and Disposition been Completed?: Yes Diagnosis: UTI (urinary tract infection) Disposition: HOME/ ROUTINE Disposition Time: 14:45 Patient Plan: Discharge Condition: STABLE Discharge Instructions (ExitCare): Urinary Tract Infections in Adults Additional Instructions: Follow up with your Doctor Drink plenty of fluid Return to ED for any new or worsening symptoms Prescriptions: Nitrofurantoin Macrocrystals [Macrobid] 100 mg PO BID #14 cap Referrals: Ranjana Gómez MD [Medical Doctor] - Follow up with primary Forms: [employer] (Slovenian)
[2018-02-09 14:16] LABS: URINE APPEARANCE CLEAR (CLEAR); URINE COLOR YELLOW (YELLOW)
[2018-02-09 14:28] LABS: URINE BACTERIA FEW (NEG); URINE RBC 0 - 2 /hpf (0-2)
[2018-02-09 14:49] VITALS: PULSE 93; TEMP 98.3; O2SAT 98
[2018-02-09 14:50] VITALS: BP 149/80
== END 2018-02-09 14:50 | disposition home or self-care (01) ==
LOC: ED 12:47
DX: N39.0 Urinary tract infection, site not specified (principal); I10 Essential (primary) hypertension; E11.9 Type 2 diabetes mellitus without complications; Z87.891 Personal history of nicotine dependence

== ENCOUNTER 2018-02-18 18:00 | Emergency (ER) | payer OTHER ==
[2018-02-18 18:11] VITALS: BMI 32.1
[2018-02-18 18:15] VITALS: RESP 18; TEMP 98.3
[2018-02-18] MEDS ORDERED: DiphenhydrAMINE 12.5 mg/5 ml LIQ UD (5 ml) PO STA (18:36)
--- NOTE | 2018-02-18 18:44 | ED PDOC ---
Arrival/HPI - General Chief Complaint: Allergic Reaction Time Seen by Provider: 02/18/18 18:25 Historian: Patient - History of Present Illness Narrative History of Present Illness (Text): 02/18/18 18:38 53yo female with pmhx of hypertension, who present with complaint of pruritic hives since this afternoon. States the only new thing she took or touched was the antibiotic she took last week for UTI. sates she finished the antibiotics. she denies any other inciting factors. Denies fever, chills, SOB, tongues swelling, drooling, chest pain, any other complaint. Past Medical History - Provider Review Nursing Documentation Reviewed: Yes - Infectious Disease Hx of Infectious Diseases: None - Tetanus Immunization Tetanus Immunization: Unknown - Cardiac Hx Cardiac Disorders: Yes Hx Heart Murmur: Yes Hx Hypertension: Yes Hx Pacemaker: No - Pulmonary Hx Respiratory Disorders: Yes Hx Asthma: Yes Hx Pneumonia: Yes - Neurological Hx Neurological Disorder: Yes Hx Seizures: Yes - HEENT Hx HEENT Disorder: No - Renal Hx Renal Disorder: No - Endocrine/Metabolic Hx Endocrine Disorders: Yes Hx Diabetes Mellitus Type 2: Yes - Hematological/Oncological Hx Blood Disorders: No Hx Blood Transfusions: No Hx Blood Transfusion Reaction: No - Integumentary Hx Dermatological Disorder: Yes Hx Basal Cell Carcinoma: Yes (BACK) Hx Eczema: Yes Hx Squamous Cell Carcinoma: Yes (Basal cell carcinoma) - Musculoskeletal/Rheumatological Hx Musculoskeletal Disorders: Yes (LT LEG PAIN) - Gastrointestinal Hx Gastrointestinal Disorders: Yes Hx Gall Bladder Disease: Yes (CHOLECYSTECTOMY) HX Swallowing Problems: Yes - Genitourinary/Gynecological Hx Genitourinary Disorders: Yes Hx Urinary Tract Infection: Yes Other/Comment: genital herpes; prolapsed bladder - Psychiatric Hx Psychophysiologic Disorder: Yes Hx Depression: Yes Hx Emotional Abuse: No Hx Panic Disorder: Yes Hx Physical Abuse: No Hx Substance Use: No - Surgical History Hx Cholecystectomy: Yes Hx Hysterectomy: Yes Hx Tonsillectomy: Yes Hx Tubal Ligation: Yes Other/Comment: bladder sling-BLADDER LIFT - Anesthesia Hx Anesthesia: Yes Hx Anesthesia Reactions: No Hx Malignant Hyperthermia: No - Suicidal Assessment Feels Threatened In Home Enviroment: No Family/Social History - Physician Review Nursing Documentation Reviewed: Yes Family/Social History: Unknown Family HX Smoking Status: Former Smoker Hx Alcohol Use: No Hx Substance Use: No Hx Substance Use Treatment: No Allergies/Home Meds Allergies/Adverse Reactions: Allergies Penicillins Allergy (Verified 02/09/18 13:52) ANAPHYLAXIS Home Medications: Home Meds Medication Instructions Recorded Confirmed Lisinopril [Zestril] 40 mg PO DAILY 03/21/17 07/04/17 RX: Aspirin [Aspirin Chewable] 81 mg PO DAILY 03/21/17 07/03/17 Fluticasone/Vilanterol [Breo 2 puff IH DAILY 07/04/17 07/04/17 Ellipta 100-25 Mcg INH] Metoclopramide [Reglan] 5 mg PO TID 07/04/17 07/04/17 RX: Meloxicam [Mobic] 15 mg PO DAILY 07/04/17 07/04/17 RX: Multivitamin [Multivitamins] 1 tab PO DAILY 07/04/17 07/04/17 RX: Ranitidine HCl [Acid Loss Prevention Leader] 150 mg PO DAILY 07/04/17 07/04/17 RX: Risperidone [Risperdal] 1 mg PO DAILY 07/04/17 07/04/17 RX: hydrOXYzine Pamoate [Vistaril] 50 mg PO DAILY 07/04/17 07/04/17 Sertraline HCl 100 mg PO DAILY 07/04/17 07/04/17 Review of Systems - Physician Review All systems were reviewed & negative as marked: Yes - Review of Systems Constitutional: Normal Eyes: Normal ENT: Normal Respiratory: Normal Cardiovascular: Normal Gastrointestinal: Normal Genitourinary Female: Normal Musculoskeletal: Normal Skin: Rash, Pruritis Neurological: Normal Endocrine: Normal Hemo/Lymphatic: Normal Psychiatric: Normal Physical Exam Vital Signs Reviewed: Yes Vital Signs Temp Pulse Resp BP Pulse Ox 02/18/18 18:14 98.3 F 104 H 18 190/97 H 96 Temperature: Afebrile Blood Pressure: Normal Pulse: Regular Respiratory Rate: Normal Appearance: Positive for: Well-Appearing, Non-Toxic, Comfortable Pain Distress: None Mental Status: Positive for: Alert and Oriented X 3 - Systems Exam Head: Present: Atraumatic, Normocephalic Pupils: Present: PERRL Extroacular Muscles: Present: EOMI Conjunctiva: Present: Normal Mouth: Present: Moist Mucous Membranes Neck: Present: Normal Range of Motion Respiratory/Chest: Present: Clear to Auscultation, Good Air Exchange. No: Respiratory Distress, Accessory Muscle Use Cardiovascular: Present: Regular Rate and Rhythm, Normal S1, S2. No: Murmurs Abdomen: No: Tenderness, Distention, Peritoneal Signs Back: Present: Normal Inspection Upper Extremity: Present: Normal Inspection. No: Cyanosis, Edema Lower Extremity: Present: Normal Inspection. No: Edema Neurological: Present: GCS=15, CN II-XII Intact, Speech Normal Skin: Present: Warm, Dry, Rashes (Hives noted to back, b/l arms and ears), Normal Color Psychiatric: Present: Alert, Oriented x 3, Normal Insight, Normal Concentration Medical Decision Making ED Course and Treatment: 02/19/18 00:08 PT presented to ED for stated history. she was not in any distress. Controlling her secretion. No stridor noted. Her lung was CTA b/l. She was treated in ED with pepcid, Benadryl and prednisone for hives. DC home with same medication. She is diabetic and was advised to check her BS regular for proper sugar monitoring. she stated that she had accordion repairer and was referred to her accordion repairer. - Medication Orders Current Medication Orders: Diphenhydramine HCl (Benadryl) 25 mg PO STAT STA Stop: 02/18/18 18:37 Famotidine (Pepcid) 20 mg PO STAT STA Stop: 02/18/18 18:37 Prednisone (Prednisone Tab) 40 mg PO STAT STA Stop: 02/18/18 18:38 Disposition/Present on Arrival - Present on Arrival Any Indicators Present on Arrival: No History of DVT/PE: No History of Uncontrolled Diabetes: Yes Urinary Catheter: No History of Decub. Ulcer: No History Surgical Site Infection Following: None - Disposition Have Diagnosis and Disposition been Completed?: Yes Diagnosis: Hives Disposition: HOME/ ROUTINE Disposition Time: 18:50 Patient Plan: Discharge Condition: STABLE Discharge Instructions (ExitCare): Hives (DC) Additional Instructions: Follow up with your Trucking Manager Return to ED for any new or worsening symptoms Prescriptions: DiphenhydrAMINE [Benadryl] 25 mg PO Q4 #20 cap predniSONE [Prednisone] 20 mg PO BID #6 tab Referrals: Kendrick Sotomayor JD, MD [Primary Care Provider] - Follow up with primary Forms: [employer] (Citizen [place])
[2018-02-18 22:56] VITALS: BP 165/71; PULSE 82; O2SAT 99
== END 2018-02-18 20:00 | disposition home or self-care (01) ==
LOC: ED 18:00
DX: L50.9 Urticaria, unspecified (principal)